=== PATIENT | female | born 2000 | race Caucasian/White ===

== ENCOUNTER 2019-03-01 23:55 | Emergency (ER) | payer OTHER, SELFPAY ==
--- OUTSIDE RECORDS SUMMARY | 2019-03-01 23:58 | XMS REPORT | Summary of Care ---
:2000 Author Name Jenifer Lopez R.N. Address [place] [facility] Unavailable , Care Team Providers Name Role Phone LISSA DURHAM M.D. Unavailable Unavailable Jenifer oLpez R.N. Unavailable Unavailable BRENNAN WOLFF, MIGUEL BLACK Unavailable Unavailable Unavailable Unavailable Unavailable Functional Status Name Dates Details Functional status health issues are not documented Status: Name Dates Details Cognitive status health issues are not documented Status: Problems Name Dates Details MDD (major depressive disorder) (296.20, F32.9) Status: Active Marijuana abuse (305.20, F12.10) Status: Active Alcohol abuse (305.00, F10.10) Status: Active Insomnia (780.52, G47.00) Status: Active Anxiety disorder (300.00, F41.9) Status: Active Bipolar disorder without psychotic features (296.80, F31.9) Status: Active Nicotine abuse (305.1, Z72.0) Status: Active Medications Name Dates Details TraZODone HCl - 100 MG Oral Tablet Take one tablet at bedtime. Quantity: 30 Refills: 1 HERMINIO Gomez, LISSA Start : 06-Jan-2017 Active DULoxetine HCl - 60 MG Oral Capsule Delayed Release Particles TAKE 1 CAPSULE DAILY Quantity: 30 Refills: 2 HERMINIO Gomez, LISSA Start : 20-Mar-2017 Active ARIPiprazole 5 MG Oral Tablet TAKE 1 TABLET BEDTIME Quantity: 30 Refills: 2 HERMINIO Gomez, LISSA Start : 06-Aug-2017 Active Allergies and Adverse Reactions Name Dates Details No Known Drug Allergies (Allergy) Status: Active Procedures Procedure Dates Details Procedures not documented Immunization Name Dates Details Immunizations not documented Social History Name Dates Details Unknown if ever smoked Vital Signs Date Test Result Details No Known Vitals to report Results Date Description Value Details Results not documented Plan of Care Name Dates Details Planned Observations Planned Goals not documented Planned Encounters Appointment; LISAS DURHAM M.D. On: 03-Jun-2018 11:30 Interventions Provided Discussion/SummaryGuideline Used: Other: None used Clinic: [facility] calling again to request prescription refills for Abilify and Cymbalta. Chart review done, kimberley did not receive a call from the clinic staff or Dr. Durham. Would like to confirm that her call back # is [phone]. The number listed on file is her mother's phone #. Requesting call back. Additional Information: Add On Task sent to Callum Hicks Instructions Name Dates Details Instructions not documented Encounters Appointment; LISSA DURHAM M.D. On: 06-Jan-2017 13:00 Encounter Diagnosis: Problem not documented Appointment; LISSA DURAHM M.D. On: 12-Feb-2017 14:00 Encounter Diagnosis: Problem not documented Appointment; LISSA DURHAM M.D. On: 19-Mar-2017 12:00 Encounter Diagnosis: Problem not documented Appointment; LISSA DURHAM M.D. On: 26-Mar-2017 12:00 Encounter Diagnosis: Problem not documented Appointment; LISSA DURHAM M.D. On: 17-Apr-2017 11:30 Encounter Diagnosis: Problem not documented Appointment; LISSA DURHAM M.D. On: 30-Jul-2017 14:00 Encounter Diagnosis: Problem not documented Appointment; LISSA DURHAM M.D. On: 01-Oct-2017 15:00 Encounter Diagnosis: Problem not documented Appointment; LISSA DURHAM M.D. On: 04-Dec-2017 12:30 Encounter Diagnosis: Problem not documented Appointment; LISSA DURHAM M.D. On: 04-Mar-2018 12:00 Encounter Diagnosis: Problem not documented
[2019-03-02 00:45] LABS: Absolute Monocytes 0.7 K/uL (0.1-1.3); Absolute Neutrophil 6.1 K/uL (1.8-8.0); Basophils % 0.4 % (0-1.3); Eosinophils % 1.5 % (0-4.4); Hematocrit 43.2 % (36.0-45.0); Lymphocytes % 35.9 % (15.3-44.8); MPV 7.5 fL (7.6-11.3); Monocytes % 6.7 % (3.3-12.3); RBC Red Blood Cell Count 5.07 M/uL (3.86-4.86)
[2019-03-02 00:51] LABS: ALT/SGPT 20 U/L (12-78); AST/SGOT 19 U/L (15-37); Albumin 4.7 g/dL (3.4-5.0); Alkaline Phosphatase 63 U/L (45-117); BUN Blood Urea Nitrogen 9 mg/dL (7-18); Bicarbonate 24 mmol/L (21-32); Bilirubin Direct 0.2 mg/dL (0-0.2); Bilirubin Total 0.9 mg/dL (0.2-1.0); Glucose Level 100 mg/dL (74-106); Potassium 3.4 mmol/L (3.5-5.1); Sodium Level 139 mmol/L (136-145)
[2019-03-02 00:57] LABS: Protime INR 1.03
[2019-03-02 01:05] LABS: Barbiturates NEGATIVE (NEGATIVE); Benzodiazepines POSITIVE (NEGATIVE); Cocaine NEGATIVE (NEGATIVE); METHAMPHETAM NEGATIVE (NEGATIVE); Methadone NEGATIVE (NEGATIVE); Opiates NEGATIVE (NEGATIVE); Phencyclidine NEGATIVE (NEGATIVE); THC Cannibis NEGATIVE (NEGATIVE)
[2019-03-02] MEDS ORDERED: LORAZEPAM 1 MG TABLET ONE (01:22)
--- NOTE | 2019-03-02 07:07 | ER ---
Nurse's Notes [facility] Name: Dawna Hopkins Age: 18 yrs Sex: Female : 2000 Arrival Date: 03/01/2019 Time: 23:57 Bed 7 Private MD: Diagnosis: Anxiety disorder due to known physiological condition Presentation: 03/02 00:04 Presenting complaint: EMS states: Pt has been having multiple anxiety attacks, EMS ea reports pt was inconsolable, and reported she wanted to get help before she hurt herself or others. Transition of care: patient was not received from another setting of care. Onset of symptoms was March 02, 2019. Risk Assessment: Do you want to hurt yourself or someone else? Patient reports desire/thoughts of hurting themselves or someone else. Provider notified. Initial Sepsis Screen: Does the patient meet any 2 criteria? HR > 90 bpm. Does the patient have a suspected source of infection? No. Patient's initial sepsis screen is negative. Care prior to arrival: Medication(s) given: Pt took Lorazepam po before EMS arrival. 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 - Social history:: Smoking status: Patient uses tobacco products, smokes one pack cigarettes per day. - Ebola Screening: : No symptoms or risks identified at this time. Screenin:14 Abuse screen: Denies threats or abuse. Nutritional screening: No deficits noted. ea Tuberculosis screening: No symptoms or risk factors identified. Fall Risk None identified. Assessment: 00:04 General: Appears uncomfortable, Behavior is cooperative, anxious, crying. Pain: Denies ea pain. Neuro: Level of Consciousness is awake, alert, obeys commands, Oriented to person, place, time, situation. Neuro:. Cardiovascular: Patient's skin is warm and dry. Respiratory: Airway is patent Respiratory effort is even, unlabored, Respiratory pattern is regular, symmetrical. GI: No signs and/or symptoms were reported involving the gastrointestinal system. : No signs and/or symptoms were reported regarding the genitourinary system. Derm: Skin is pink, warm \T\ dry. Musculoskeletal: Circulation, motion, and sensation intact. 01:00 Reassessment: Patient and/or family updated on plan of care and expected duration. Pain ea level reassessed. Patient is alert, oriented x 3, equal unlabored respirations, skin warm/dry/pink. 02:44 Reassessment: Patient and/or family updated on plan of care and expected duration. Pain ea level reassessed. Patient is alert, oriented x 3, equal unlabored respirations, skin warm/dry/pink. 04:50 Reassessment: Patient and/or family updated on plan of care and expected duration. Pain ea level reassessed. Pt resting with eyes closed, respirations even and unlabored. Chest expansions even and symmetrical. 05:30 Reassessment: Patient and/or family updated on plan of care and expected duration. Pain ea level reassessed. Patient is alert, oriented x 3, equal unlabored respirations, skin warm/dry/pink. [place] at bedside. Vital Signs: 00:10 BP 140 / 97; Pulse 110; Resp 20; Temp 98; Pulse Ox 98% on R/A; Weight 55.79 kg; Height ea 5 ft. 1 in. (154.94 cm); Pain 0/10; 01:52 BP 129 / 84; Pulse 102; Resp 18; Pulse Ox 100% on R/A; mw2 06:53 BP 128 / 86; Pulse 96; Resp 18; Pulse Ox 100% on R/A; mw2 00:10 Body Mass Index 23.24 (55.79 kg, 154.94 cm) ea ED Course: 03/01 23:57 Patient arrived in ED. ds1 03/02 00:01 Sunny Nevarez MD is Attending Physician. tw4 00:04 Janelle Falcon RN is Primary Nurse. ea 00:04 Patient has correct armband on for positive identification. Placed in gown. Bed in low ea position. Adult w/ patient. 00:10 Triage completed. ea 00:14 Arm band placed on right wrist. Patient placed in an exam room, on a stretcher. ea 00:15 Safety Checks: Personal items have been removed. Pt personal items given to patient's ea parents The door is open or patient has been placed in a hallway bed/chair. A family member and/or friend is present and encouraged to stay. Mother at bedside Sitter present at this time. 00:15 Safety checks: Items removed: yes. Door open/sign placed on door: yes. Family/friend mw2 present: yes. Family/friends encouraged to stay with patient. Sitter present: Yes. Door closed. Noise minimized. Lights dimmed. Warm blanket given. Pillow given. cup of ice chips given. 00:23 Inserted saline lock: 22 gauge in left hand, using aseptic technique. Blood collected. mt 00:30 Safety checks: Items removed: yes. Door open/sign placed on door: yes. Family/friend mw2 present: yes. Family/friends encouraged to stay with patient. Sitter present: Yes. 00:45 Safety checks: Items removed: yes. Door open/sign placed on door: yes. Family/friend mw2 present: yes. Sitter present: Yes. 01:00 Safety checks: Items removed: yes. Door open/sign placed on door: yes. Family/friend mw2 present: yes. Sitter present: Yes. 01:15 Safety checks: Items removed: yes. Door open/sign placed on door: yes. Family/friend mw2 present: yes. Sitter present: Yes. 01:30 Safety checks: Items removed: yes. Door open/sign placed on door: yes. Family/friend mw2 present: yes. Sitter present: Yes. 01:45 Safety checks: Items removed: yes. Door open/sign placed on door: yes. Family/friend mw2 present: yes. Sitter present: Yes. 02:00 Safety checks: Items removed: yes. Door open/sign placed on door: yes. Family/friend mw2 present: yes. Sitter present: Yes. 02:15 Safety checks: Items removed: yes. Door open/sign placed on door: yes. Family/friend mw2 present: yes. Sitter present: Yes. 02:30 Safety checks: Items removed: yes. Door open/sign placed on door: yes. Family/friend mw2 present: yes. Sitter present: Yes. 02:45 Safety checks: Items removed: yes. Door open/sign placed on door: yes. Family/friend mw2 present: yes. Sitter present: Yes. 03:00 Safety checks: Items removed: yes. Door open/sign placed on door: yes. Family/friend mw2 present: yes. Sitter present: Yes. 03:15 Safety checks: Items removed: yes. Door open/sign placed on door: yes. Family/friend mw2 present: yes. Sitter present: Yes. 03:30 Safety checks: Items removed: yes. Door open/sign placed on door: yes. Family/friend mw2 present: yes. Sitter present: Yes. 03:45 Safety checks: Items removed: yes. Door open/sign placed on door: yes. Family/friend mw2 present: yes. Sitter present: Yes. 04:00 Safety checks: Items removed: yes. Door open/sign placed on door: yes. Family/friend mw2 present: yes. Sitter present: Yes. 04:15 Safety checks: Items removed: yes. Door open/sign placed on door: yes. Family/friend mw2 present: yes. Sitter present: Yes. 04:30 Safety checks: Items removed: yes. Door open/sign placed on door: yes. Family/friend mw2 present: yes. Sitter present: Yes. 04:45 Safety checks: Items removed: yes. Door open/sign placed on door: yes. Family/friend mw2 present: no. Sitter present: Yes. 05:00 Safety checks: Items removed: yes. Door open/sign placed on door: yes. Family/friend mw2 present: no. Sitter present: Yes. 05:15 Safety checks: Items removed: yes. Door open/sign placed on door: yes. Family/friend mw2 present: no. Sitter present: Yes. 05:30 Safety checks: Items removed: yes. Door open/sign placed on door: yes. Family/friend mw2 present: no. Sitter present: Yes. 05:45 Safety checks: Items removed: yes. Door open/sign placed on door: yes. Family/friend mw2 present: no. Sitter present: Yes. 06:00 Safety checks: Items removed: yes. Door open/sign placed on door: yes. Family/friend mw2 present: yes. Sitter present: Yes. 06:15 Safety checks: Items removed: yes. Door open/sign placed on door: yes. Family/friend mw2 present: yes. Sitter present: Yes. 06:30 Safety checks: Items removed: yes. Door open/sign placed on door: yes. Family/friend mw2 present: yes. Sitter present: Yes. 06:45 Safety checks: Items removed: yes. Door open/sign placed on door: yes. Family/friend mw2 present: no. Sitter present: Yes. 07:00 Safety checks: Items removed: yes. Door open/sign placed on door: yes. Family/friend ms present: no. Sitter present: Yes. 07:40 No provider procedures requiring assistance completed. IV discontinued, intact, ss bleeding controlled, No redness/swelling at site. Pressure dressing applied. Administered Medications: 01:23 Drug: Ativan 1 mg Route: PO; ea 02:00 Follow up: Response: No adverse reaction alvarez Outcome: 07:06 Discharge ordered by tw4 08:05 Patient left the ED. ph Signatures: Mirella Godfrey dsShoshana Young ms, Shelby, RN RN ss Hall, Patricia, RN RN Ailyn Mccarthy mt, Elena, RN RN ea Wadley, Terrence, MD MD tw4 Gregoria Mata mw2 Corrections: (The following items were deleted from the chart) 05:16 04:45 Safety checks: Items removed: yes. Door open/sign placed on door: yes. mw2 Family/friend present: yes. Sitter present: Yes. mw2 05:16 05:00 Safety checks: Items removed: yes. Door open/sign placed on door: yes. mw2 Family/friend present: yes. Sitter present: Yes. mw2
--- NOTE | 2019-03-02 07:07 | EDPHYS ---
Physician Documentation [facility] Name: Dawna Hopkins Age: 18 yrs Sex: Female : 2000 Arrival Date: 03/01/2019 Time: 23:57 Bed 7 Private MD: ED Physician Sunny Nevarez HPI: 03/02 03:28 This 18 yrs old Female presents to ER via EMS with complaints of Anxiety. tw4 03:28 The patient presents to the emergency department with anxiety, over unknown tw4 circumstances, suicide ideation. Onset: The symptoms/episode began/occurred today. Past psychiatric history: Prior diagnosis: bipolar disorder. Associated signs and symptoms: The patient has no apparent associated signs or symptoms. Severity of symptoms: At their worst the symptoms were mild in the emergency department the symptoms are unchanged. The patient has not experienced similar symptoms in the past. 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 - Social history:: Smoking status: Patient uses tobacco products, smokes one pack cigarettes per day. - Ebola Screening: : No symptoms or risks identified at this time. ROS: 03:28 Constitutional: Negative for fever, chills, and weight loss, Eyes: Negative for injury, tw4 pain, redness, and discharge, Cardiovascular: Negative for chest pain, palpitations, and edema, Respiratory: Negative for shortness of breath, cough, wheezing, and pleuritic chest pain, Abdomen/GI: Negative for abdominal pain, nausea, vomiting, diarrhea, and constipation, Back: Negative for injury and pain, MS/Extremity: Negative for injury and deformity, Skin: Negative for injury, rash, and discoloration, Neuro: Negative for headache, weakness, numbness, tingling, and seizure. 03:28 Psych: Positive for anxiety, depression, suicide gesture, suicidal ideation, Negative for drug dependence, alcohol dependence, auditory hallucinations, visual hallucinations, homicidal ideation, insomnia. Exam: 03:28 Constitutional: This is a well developed, well nourished patient who is awake, alert, tw4 and in no acute distress. Head/Face: Normocephalic, atraumatic. Chest/axilla: Normal chest wall appearance and motion. Nontender with no deformity. No lesions are appreciated. Cardiovascular: Regular rate and rhythm with a normal S1 and S2. No gallops, murmurs, or rubs. Normal PMI, no JVD. No pulse deficits. Respiratory: Lungs have equal breath sounds bilaterally, clear to auscultation and percussion. No rales, rhonchi or wheezes noted. No increased work of breathing, no retractions or nasal flaring. Abdomen/GI: Soft, non-tender, with normal bowel sounds. No distension or tympany. No guarding or rebound. No evidence of tenderness throughout. Back: No spinal tenderness. No costovertebral tenderness. Full range of motion. Skin: Warm, dry with normal turgor. Normal color with no rashes, no lesions, and no evidence of cellulitis. MS/ Extremity: Pulses equal, no cyanosis. Neurovascular intact. Full, normal range of motion. Neuro: Awake and alert, GCS 15, oriented to person, place, time, and situation. Cranial nerves II-XII grossly intact. Motor strength 5/5 in all extremities. Sensory grossly intact. Cerebellar exam normal. Normal gait. 03:28 Psych: Behavior/mood is anxious, suicidal, Affect is animated, Oriented to person, place, time. Vital Signs: 00:10 BP 140 / 97; Pulse 110; Resp 20; Temp 98; Pulse Ox 98% on R/A; Weight 55.79 kg; Height ea 5 ft. 1 in. (154.94 cm); Pain 0/10; 01:52 BP 129 / 84; Pulse 102; Resp 18; Pulse Ox 100% on R/A; mw2 06:53 BP 128 / 86; Pulse 96; Resp 18; Pulse Ox 100% on R/A; mw2 00:10 Body Mass Index 23.24 (55.79 kg, 154.94 cm) ea MDM: 00:01 Patient medically screened. 03/02 00:02 Order name: Acetaminophen 03/02 00:02 Order name: Basic Metabolic Panel 03/02 00:02 Order name: CBC with Diff 03/02 00:02 Order name: ETOH Level 03/02 00:02 Order name: Hepatic Function 03/02 00:02 Order name: PT-INR 03/02 00:02 Order name: Ptt, Activated 03/02 00:02 Order name: Salicylate 03/02 00:02 Order name: Urine Drug Screen 03/02 00:02 Order name: EKG; Complete Time: 00:09 03/02 00:02 Order name: EKG - Nurse/Tech; Complete Time: 00:33 03/02 00:02 Order name: IV Saline Lock; Complete Time: 00:23 03/02 00:02 Order name: Labs collected and sent; Complete Time: 00:24 03/02 00:02 Order name: Urine Dipstick-Ancillary (obtain specimen); Complete Time: :33 Administered Medications: 01:23 Drug: Ativan 1 mg Route: PO; ea 02:00 Follow up: Response: No adverse reaction ea Disposition: 03/02/19 07:06 Discharged to Home. Impression: Anxiety disorder due to known physiological condition. - Condition is Stable. - Discharge Instructions: Panic Attacks. - Medication Reconciliation Form, Thank You Letter, Antibiotic Education, Prescription Opioid Use, Family Work Release form. - Follow up: Private Physician; When: Upon discharge from the Emergency Department; Reason: If symptoms return, Recheck today's complaints, Continuance of care. - Problem is new. - Symptoms have improved. Signatures: Dispatcher [employer] Yasmine Priest RN RN ph Antunez, Elena RN Sunny Cervantes ea, MD MD tw4 Corrections: (The following items were deleted from the chart) 08:05 07:06 03/02/2019 07:06 Discharged to Home. Impression: Anxiety disorder due to known ph physiological condition. Condition is Stable. Forms are Family Work Release, Medication Reconciliation Form, Thank You Letter, Antibiotic Education, Prescription Opioid Use. Follow up: Private Physician; When: Upon discharge from the Emergency Department; Reason: If symptoms return, Recheck today's complaints, Continuance of care. Problem is new. Symptoms have improved. tw4
--- NOTE | 2019-03-02 07:54 | EKG ---
Test Date: 2019-03-02 Test Time: 00:27:39 Manager Mobile: DAVID MEASUREMENT RESULTS: Intervals: Rate: 95 WA: 120 QRSD: 86 QT: 350 QTc: 439 [place]: P: 61 WA: 120 QRS: 13 T: 35 INTERPRETIVE STATEMENTS: Normal sinus rhythm Normal ECG No previous ECG available for comparison Electronically Signed On 03-02-19 07:53:26 CDT by Dar Mcdermott
== END 2019-03-02 08:05 | disposition home or self-care (01) ==
LOC: ER 23:55
DX: F41.8 Other specified anxiety disorders (principal); F31.9 Bipolar disorder, unspecified; F17.210 Nicotine dependence, cigarettes, uncomplicated
CPT/HCPCS: 36415; 80048; 80076; 80307; 80320; 80329; 85025; 85610; 85730; 93005; 99284

== ENCOUNTER 2019-03-02 12:22 | Emergency (ER) | payer SELFPAY ==
--- NOTE | 2019-03-02 13:30 | EDPHYS ---
Physician Documentation [facility] Name: Dawna Hopkins Age: 18 yrs Sex: Female : 2000 Arrival Date: 03/02/2019 Time: 12:25 Bed 17 Private MD: ED Physician Branden Yung HPI: 03/02 13:15 This 18 yrs old Female presents to ER via Wheelchair with complaints of ps1 anxiety and psychogenic seizures. 13:15 patient was seen and evaluated previously for same complaint. Patient has seizure like ps1 activity that is able to be stopped with redirection by RN. Patient states that she has a previous psychiatric history of anxiety and diagnosed with bipolar disorder and has been really stressed over the last couple of days. She attests to significant alcohol consumption, tobacco abuse, and insomnia. . Historical: - Allergies: 12:44 No Known Allergies; aj1 - Home Meds: 12:44 Lorazepam Oral [Active]; Xanax Oral [Active]; Cymbalta oral oral [Active]; aj1 - PMHx: 12:44 Anxiety; Bipolar disorder; Asthma; aj1 - Immunization history:: Flu vaccine is not up to date. - Social history:: Smoking status: Patient uses tobacco products, smokes two packs cigarettes per day. - Ebola Screening: : Patient denies travel to an Ebola-affected area in the 21 days before illness onset. ROS: 13:15 Constitutional: Negative for fever, chills, and weight loss, Eyes: Negative for injury, ps1 pain, redness, and discharge, ENT: Negative for injury, pain, and discharge, Cardiovascular: Negative for chest pain, palpitations, and edema, Respiratory: Negative for shortness of breath, cough, wheezing, and pleuritic chest pain, Abdomen/GI: Negative for abdominal pain, nausea, vomiting, diarrhea, and constipation, Skin: Negative for injury, rash, and discoloration. 13:15 Psych: Positive for anxiety, alcohol dependence, suicidal ideation without plan. psychogenic non-epileptic seizure.. Exam: 13:15 Constitutional: This is a well developed, well nourished patient who is awake, alert, ps1 and in no acute distress. Head/Face: Normocephalic, atraumatic. Eyes: Pupils equal round and reactive to light, extra-ocular motions intact. Lids and lashes normal. Conjunctiva and sclera are non-icteric and not injected. ENT: Nares patent. No nasal discharge, no septal abnormalities noted. Tympanic membranes are normal and external auditory canals are clear. Oropharynx with no redness, swelling, or masses, exudates, or evidence of obstruction, uvula midline. Mucous membranes moist. Chest/axilla: Normal chest wall appearance and motion. Nontender with no deformity. No lesions are appreciated. Cardiovascular: Regular rate and rhythm. No gallops, murmurs, or rubs. Normal PMI, no JVD. No pulse deficits. Respiratory: Lungs have equal breath sounds bilaterally, clear to auscultation and percussion. No rales, rhonchi or wheezes noted. No increased work of breathing, no retractions or nasal flaring. Neuro: Awake and alert, GCS 15, oriented to person, place, time, and situation. Cranial nerves II-XII grossly intact. Sensory grossly intact. 13:15 Psych: Behavior/mood is anxious, uncooperative, angry, Affect is animated, Patient has no thoughts/intents to harm self or others. patient demonstrating psychogenic seizure in the ED. Completely redirectable. Not epileptic. Aggressive with staff and myself. . Vital Signs: 12:44 BP 149 / 99; Pulse 111; Resp 18; Temp 98.2; Pulse Ox 98% on R/A; Weight 57.61 kg (R); aj1 Height 5 ft. 1 in. (154.94 cm) (R); 13:28 BP 140 / 98; Pulse 109; Resp 18; Pulse Ox 100% ; bp 12:44 Body Mass Index 24.00 (57.61 kg, 154.94 cm) aj1 MDM: 12:54 Patient medically screened. ps1 13:15 Data reviewed: vital signs, nurses notes. ED course: patient became aggressive with ps1 staff and myself and alluding to violence. Family states that they will leave AMA. I agreed that she is not having seizure activity. Does need psychiatric evaluation but cannot threaten or try to manipulate staff. They left on their own accord after AMA. . Administered Medications: No medications were administered Disposition: 03/02/19 13:29 Patient has left against medical advice. - Patients states they are going to Home. - Condition is Stable. Signatures: Jessica Vaca RN RN aj1 Nestor Boucher RN RN bp Branden Yung, MD ps1
--- NOTE | 2019-03-02 13:30 | ER ---
Nurse's Notes [facility] Name: Dawna Hopkins Age: 18 yrs Sex: Female : 2000 Arrival Date: 03/02/2019 Time: 12:25 Bed 17 Private MD: Diagnosis: Presentation: 03/02 12:35 Presenting complaint: Patent's friend ran inside ER, stating patient was unresponsive aj1 in the car, patient was sitting in the car with eyes closed, respirations even and labored. Upon being sternal rubbed patient opened her eyes and screamed "ow!" Patient was placed into a wheelchair, where she began having seizure like activity. Patient remained upright in chair during this episode and when patient was sternal rubbed the seizure activity stopped. Patient was wheel to ER bed 17, and transferred herself from wheelchair to bed. Patient was alert and oriented x4 upon arrival to ER bed. States "I think I'm having a manic episode, theres a lot that goes with that. I've been to the ER 3 times in the past 72 hours. Obviously I'm having seizures. I just need you to fix it". Transition of care: patient was not received from another setting of care. Onset of symptoms was March 02, 2019. Risk Assessment: Do you want to hurt yourself or someone else? Patient reports no desire to harm self or others. Initial Sepsis Screen: Does the patient meet any 2 criteria? No. Patient's initial sepsis screen is negative. Does the patient have a suspected source of infection? No. Patient's initial sepsis screen is negative. Care prior to arrival: None. 12:35 Method Of Arrival: Wheelchair aj1 12:35 Acuity: AZIZA 3 aj1 Triage Assessment: 12:44 General: Appears in no apparent distress. comfortable, Behavior is calm, cooperative, aj1 appropriate for age. Historical: - Allergies: 12:44 No Known Allergies; aj1 - Home Meds: 12:44 Lorazepam Oral [Active]; Xanax Oral [Active]; Cymbalta oral oral [Active]; aj1 - PMHx: 12:44 Anxiety; Bipolar disorder; Asthma; aj1 - Immunization history:: Flu vaccine is not up to date. - Social history:: Smoking status: Patient uses tobacco products, smokes two packs cigarettes per day. - Ebola Screening: : Patient denies travel to an Ebola-affected area in the 21 days before illness onset. Screenin:25 Abuse screen: Denies threats or abuse. Denies injuries from another. Nutritional bp screening: No deficits noted. Tuberculosis screening: No symptoms or risk factors identified. Fall Risk None identified. Assessment: 13:00 General: PT ENGAGING IN RHYTHMIC FLOPPING MOTIONS WHICH RESOLVED WITH NOXIOUS STIMULI. bp PT THEN SCREAMING AT STAFF AND FAMILY AND FLAILING HANDS AND FEET IN BED. MD ALERTED OF PT AGITATED BEHAVIOR AND ABUSIVE LANGUAGE WITH STAFF AND FAMILY. 13:21 General: PT AND FAMILY ELECTING NOT TO WAIT FOR PSYCH W/U AFTER CONSULTATION WITH MD, bp PT DENIES SI. Vital Signs: 12:44 BP 149 / 99; Pulse 111; Resp 18; Temp 98.2; Pulse Ox 98% on R/A; Weight 57.61 kg (R); aj1 Height 5 ft. 1 in. (154.94 cm) (R); 13:28 BP 140 / 98; Pulse 109; Resp 18; Pulse Ox 100% ; bp 12:44 Body Mass Index 24.00 (57.61 kg, 154.94 cm) aj1 ED Course: 12:25 Patient arrived in ED. bp 12:25 Branden Yung MD is Attending Physician. ps1 12:27 Nestor Boucher, RN is Primary Nurse. bp 12:39 Triage completed. aj1 12:44 Arm band placed on Patient Patient triaged in ER bed 17. aj1 13:25 Patient has correct armband on for positive identification. Adult w/ patient. bp 13:26 No provider procedures requiring assistance completed. Patient did not have IV access bp during this emergency room visit. Administered Medications: No medications were administered Outcome: 13:27 AMA Other LEFT WITH FAMILY, LAST SEEN IN STABLE CONDITION bp 13:27 Condition: stable 13:29 Patient left the ED. bp Signatures: Jessica Vaca RN RN aj1 Senia Don RN RN ss Peltier, Brian, OFELIA RN bp Branden Yung MD MD ps1 Corrections: (The following items were deleted from the chart) 13:07 13:05 No provider procedures requiring assistance completed. ss ss 13: 13:05 IV discontinued, intact, bleeding controlled, No redness/swelling at site. ss Pressure dressing applied, ss 13:07 13:05 Discharged to home ambulatory, [facility] 13:05 Condition: good [facility] 13:05 Discharge instructions given to patient, family, Instructed on discharge instructions, follow up and referral plans. medication usage, Demonstrated understanding of instructions, follow-up care, medications, Prescriptions given X 1, ss
== END 2019-03-02 13:29 | disposition left against medical advice (07) ==
LOC: ER 12:22
DX: F41.9 Anxiety disorder, unspecified (principal); F31.9 Bipolar disorder, unspecified; J45.909 Unspecified asthma, uncomplicated; F17.210 Nicotine dependence, cigarettes, uncomplicated; Z53.29 Procedure and treatment not carried out because of patient's decision for other reasons
CPT/HCPCS: 99281

== ENCOUNTER 2024-11-28 13:27 | Emergency (ER) | payer BC, SELFPAY ==
--- OUTSIDE RECORDS SUMMARY | 2024-11-28 13:30 | XMS REPORT | Continuity of Care Document ---
Author Name Unknown Address [address] [facility] [address] [place] [address] [facility] thconnect Address [address] [facility] [address] [place] [address] Care Team Providers Care Peanut Cleaner Name Role Phone Roxann Wagner Primary Care Physician PASCALE LU Attending Clinician Unavailable Pascale Arriola Attending Clinician Doctor Unassigned, [place] Attending Clinician U JANET Story Attending Clinician Janet Lemons Attending Clinician + Erum Campuzano RN Attending Clinician Vee casas Doctor Unassigned, [place] Attending Clinician U navailzan THOMAS_GCBZW_Kadiyala_S Attending Clinician Rainera LISSA Garcia M.D. Attending Clinician Jun e WILLIAM_[email or web address]_Katimoteo_S Admitting Clinician Vee casas Payers Payer Name Policy Type Policy Number Effective Date Expirati on Date Source [facility] [id number] 2024 00:00:00 Problems Condition Name Condition Details Condition Category Status Onset Date Resolution Date Last Treatment Date Treating Clinician Comments Source Other general counseling and advice for contracept yenni management Other general counseling and advice for contracept yenni management Disease Active 07-06 00:00: 00 [facility] MDD (major depressive disorder) MDD (major depressive disorder) Problem HL7.CCDAR2 Active [facility] Marijuana abuse Marijuana abuse Problem HL7.CCDAR2 Active [facility] Alcohol abuse Alcohol abuse Problem HL7.CCDAR2 Active [facility] Insomnia Insomnia Problem HL7.CCDAR2 Active [facility] Anxiety disorder Anxiety disorder Problem HL7.CCDAR2 Active [facility] Bipolar disorder without psychotic features Bipolar disorder without psychotic features Problem HL7.CCDAR2 Active [facility] Nicotine abuse Nicotine abuse Problem HL7.CCDAR2 Active [facility] IUD (intrauter ine device) in place IUD (intrauter ine device) in place Disease Resolve d 07-06 00:00: 00 2024-11-01 00:00:00 2024-11-01 15:37:27 [facility] Allergies, Adverse Reactions, Alerts Allergy Name Allergy Type Status Severity Reaction(s) Onset Date Inactive Date Treating Clinician Comments Source Gabapent in Propensi ty to adverse reaction s Active Other - See comments 2022-10 00:00: 00 "Makes me suicidal" . [facility] GABAPENT IN DRUG INGREDI Active Other-Cmnt 2022-10 00:00: 00 [facility] Social History Social Habit Start Date Stop Date Quantity Comments Source History of tobacco use Cigarette Smoker [facility] Alcoholic beverage intake 2024-11-01 00:00:00 2024-11-01 00:00:00 2 /d [facility] Tobacco use and exposure 2024-04-09 00:00:00 2024-04-09 00:00:00 Smokeless tobacco non-user [facility] History of Social function 2024-04-09 00:00:00 2024-04-09 00:00:00 [facility] Tobacco Comment 2024-04-09 00:00:00 2024-04-09 00:00:00 7 cigarettes per day since age 11 [facility] Sex assigned at 2000 00:00:00 2000 00:00:00 [facility] Smoking Status Start Date Stop Date Source Smokes tobacco daily 2024-04-09 00:00:00 [facility] Medications Ordered Medication Name Filled Medication Name Start Date Stop Date Current Medication? Ordering Clinician Indication Dosage Frequency Signature (SIG) Comments Components Source ketoconazol e 2 % topical cream 11-08 00:00: 00 Yes % Marcelo Moreno diazePAM 10 mg tablet 11-01 15:37: 02 Yes 5mg Take 0.5 tablets by mouth in the morning and 0.5 tablets in the evening. [facility] trazodone 50 mg tablet 11-01 00:00: 00 Yes mg Marcelo Moreno lamotrigine 150 mg tablet 2023-10 00:00: 00 Yes mg Marcelo Moreno tretinoin 0.025 % topical cream 2023-10 00:00: 00 Yes % Marcelo Moreno metroNIDAZO LE 500 mg tablet 2023-10 00:00: 00 11-01 00:00 :00 No [id number] 500mg Take 1 tablet by mouth every 12 (twelve) hours. [facility] fluconazole 150 mg tablet 2023-10 00:00: 00 09-09 05:59 :00 Yes [id number] 150mg Take 1 tablet by mouth once now for 1 dose. [facility] metroNIDAZO LE 500 mg tablet 2023-10 00:00: 00 09-08 00:00 :00 No [id number] 500mg Take 1 tablet by mouth every 12 (twelve) hours. [facility] etonogestre l-ethinyl estradiol (NUVARING) 0.12-0.015 mg/24 hr vaginal insert 2023-10 0-14 00:00: 00 11-01 00:00 :00 No [id number] 1{each} Insert 1 Each into vagina once every month. Insert vaginally and leave in place for 3 consecutiv e weeks, then remove for 1 week. [facility] venlafaxine 37.5 mg tablet 07-16 08:58: 40 Yes 37.5mg Take 1 tablet by mouth in the morning. [facility] zolpidem 10 mg tablet 07-16 08:58: 40 Yes 10mg Take 1 tablet by mouth at bedtime as needed for Insomnia. [facility] lamoTRIgine 100 mg tablet 07-16 08:58: 40 Yes 100mg Take 1 tablet by mouth in the morning. [facility] traZODone 50 mg tablet 07-16 08:58: 40 Yes 50mg Take 1 tablet by mouth at bedtime. [facility] lumateperon e (CAPLYTA) 21 mg Cap 07-16 08:58: 40 Yes 1{tbl} Take 1 tablet by mouth in the morning and 1 tablet in the evening. [facility] clonazePAM 0.5 mg tablet 07-16 08:58: 40 11-01 00:00 :00 No .5mg Take 1 tablet by mouth 3 (three) times daily as needed for Other. [facility] metroNIDAZO LE 0.75 % (37.5mg/5 gram) vaginal gel 07-16 00:00: 00 11-01 00:00 :00 No [id number] 1{appli cator} Insert 1 Applicator into vagina at bedtime. [facility] ibuprofen 800 mg tablet 07-06 00:00: 00 07-12 04:59 :00 No [id number] 800mg Take 1 tablet by mouth in the morning and 1 tablet at noon and 1 tablet in the evening. Take with meals. Do all this for 5 days. [facility] hydroxyzine HCl 25 mg tablet 06-01 00:00: 00 Yes 1mg Marcelo Moreno Seroquel 25 mg tablet 06-01 00:00: 00 Yes 1mg Marcelo Moreno venlafaxine ER 75 mg capsule,ext ended release 24 hr 06-01 00:00: 00 Yes 1mg Marcelo Moreno Seroquel 25 mg tablet 16 00:00: 00 Yes 1mg Marcelo Moreno venlafaxine ER 75 mg capsule,ext ended release 24 hr -16 00:00: 00 Yes 1mg Marcelo Moreno metroNIDAZO LE 500 mg tablet 04-13 00:00: 00 07-16 00:00 :00 No [id number] 500mg Take 1 tablet by mouth every 12 (twelve) hours. [facility] venlafaxine 75 mg tablet 04-09 07:17: 44 Yes 75mg Take 1 tablet by mouth. [facility] QUEtiapine 100 mg tablet 04-09 07:17: 44 08-02 00:00 :00 No 100mg Take 1 tablet by mouth. [facility] hydroxyzine HCl 25 mg tablet 03-30 00:00: 00 Yes 1mg Marcelo Moreno Seroquel 25 mg tablet 03-30 00:00: 00 Yes 1mg Marcelo Moreno venlafaxine ER 75 mg capsule,ext ended release 24 hr 03-30 00:00: 00 Yes 1mg Marcelo Moreno Seroquel 25 mg tablet 05 00:00: 00 Yes 1mg Marcelo Moreno hydrOXYzine 25 mg tablet 03-17 00:00: 00 08-02 00:00 :00 No 25mg Take 1 tablet by mouth 2 (two) times daily as needed for Anxiety. [facility] venlafaxine ER 75 mg capsule,ext ended release 24 hr 03-16 00:00: 00 Yes mg Marcelo Moreno buspirone 5 mg tablet 0 03-16 00:00: 00 Yes 1mg Marcelo Moreno hydroxyzine HCl 25 mg tablet 03-16 00:00: 00 Yes 1mg Marcelo Moreno Seroquel 25 mg tablet 03-16 00:00: 00 Yes 1mg Marcelo Moreno spironolact one 50 mg tablet -08 00:00: 00 Yes TAKE 1 TABLET BY MOUTH TWICE A DAY WITH FOOD AND WATER [facility] venlafaxine ER 75 mg capsule,ext ended release 24 hr 02-16 00:00: 00 Yes mg Marcelo Moreno buspirone 5 mg tablet 02-16 00:00: 00 Yes 1mg Marcelo Moreno hydroxyzine HCl 50 mg tablet 02-16 00:00: 00 Yes 1mg Marcelo Moreno propranolol 20 mg tablet 01-20 00:00: 00 Yes mg Marcelo Moreno venlafaxine ER 75 mg capsule,ext ended release 24 hr 01-20 00:00: 00 Yes mg Marcelo Moreno hydroxyzine HCl 25 mg tablet 01-20 00:00: 00 Yes 12mg Marcelo Moreno clonazepam 0.5 mg tablet 12-27 00:00: 00 Yes mg Marcelo Moreno TAKE ONE (1) TABLET(S) BY MOUTH TWICE A DAY. 12-26 00:00: 00 Yes Marcelo Moreno TAKE ONE (1) TABLET(S) BY MOUTH TWICE A DAY. 12-12 00:00: 00 Yes Marcelo Moreno propranolol 20 mg tablet 11-20 00:00: 00 Yes mg Marcelo Moreno TAKE ONE (1) TABLET(S) BY MOUTH ONCE A DAY NEEDED. 11-18 00:00: 00 Yes Marcelo Moreno TAKE ONE (1) TABLET(S) BY MOUTH TWICE A DAY. 11-18 00:00: 00 Yes Marcelo Moreno venlafaxine ER 75 mg capsule,ext ended release 24 hr 11-10 00:00: 00 Yes mg Marcelo Moreno TAKE 1 CAPSULE BY MOUTH EVERY DAY DIRECTED 2022-10 00:00: 00 Yes Marcelo Moreno spironolact one 50 mg tablet 2022-10 00:00: 00 Yes mg Marcelo Moreno TAKE 1 TABLET BY MOUTH TWICE DAILY WITH FOOD AND WATER 2022-10 00:00: 00 Yes Marcelo Moreno TAKE 1 CAPSULE BY MOUTH EVERY DAY DIRECTED 2022-10 00:00: 00 Yes Marcelo Moreno TAKE 1 TABLET BY MOUTH TWICE DAILY FOR 14 DAYS 2022-10 00:00: 00 Yes Marcelo Moreno KETOROLAC 10MG TABLETS 2022-10 116 00:00: 00 Yes Marcelo Moreno ONDANSETRON ODT 4MG TABLETS 05-31 00:00: 00 Yes Marcelo Moreno TRAMADOL 50MG TABLETS 05-31 00:00: 00 Yes Marcelo Moreno FOR SUSPECTED OPIOID OVERDOSE, ADMINISTER CONTENTS OF A SINGLE SPRAY DEVICE INTRANASALL Y INTO ONE NOSTRIL, CLOSELY OBSERVE PATIENT AND SEEK EMERGENCY MEDICAL CARE. MAY REPEAT WITH ANOTHER SPRAY DEVICE IN ALTERNATE NOSTRIL(S) EVERY 2 TO 3 MINUTES IF MINIMAL OR NO RESPONSE. 805 00:00: 00 Yes 4 Marcelo Moreno ARIPiprazol e 5 MG Oral Tablet ARIPiprazol e 5 MG Oral Tablet 2016-10 0 00:00: 00 Yes LISSA DURHAM M.D. 1 TAKE 1 TABLET BEDTIME [facility] DULoxetine HCl - 60 MG Oral Capsule Delayed Release Particles DULoxetine HCl - 60 MG Oral Capsule Delayed Release Particles 03-20 00:00: 00 Yes LISSA DURHAM M.D. 1 QD TAKE 1 CAPSULE DAILY [facility] TraZODone HCl - 100 MG Oral Tablet TraZODone HCl - 100 MG Oral Tablet -20 00:00: 00 Yes LISSA DURHAM M.D. Take one tablet at bedtime. [facility] Immunizations Ordered Immunization Name Filled Immunization Name Date Status Comments Source HPV9 2015-12-28 00:00:00 Completed HPV 2014-08-26 00:00:00 Completed [facility] HPV 2013-11-19 00:00:00 Completed Vital Signs Vital Name Observation Time Observation Value Comments S ource Systolic blood pressure 2024-11-01 20:49:00 134 mm[Hg] [facility] Diastolic blood pressure 2024-11-01 20:49:00 87 mm[Hg] [facility] Heart rate 2024-11-01 20:49:00 100 /min [facility] Body temperature 2024-11-01 20:49:00 36.5 Khloe [facility] Respiratory rate 2024-11-01 20:49:00 17 /min [facility] Body height 2024-11-01 20:49:00 157.5 cm [facility] Body weight 2024-11-01 20:49:00 57.788 kg [facility] BMI 2024-11-01 20:49:00 23.30 kg/m2 [facility] Systolic blood pressure 2024-09-07 22:11:00 118 mm[Hg] [facility] Diastolic blood pressure 2024-09-07 22:11:00 77 mm[Hg] [facility] Heart rate 2024-09-07 22:11:00 80 /min [facility] Body temperature 2024-09-07 22:11:00 36.44 Khloe [facility] Respiratory rate 2024-09-07 22:11:00 17 /min [facility] Body height 2024-09-07 22:11:00 157.5 cm [facility] Body weight 2024-09-07 22:11:00 60.056 kg [facility] BMI 2024-09-07 22:11:00 24.22 kg/m2 [facility] Systolic blood pressure 2024-08-02 13:22:00 127 mm[Hg] [facility] Diastolic blood pressure 2024-08-02 13:22:00 85 mm[Hg] [facility] Heart rate 2024-08-02 13:22:00 119 /min [facility] Body temperature 2024-08-02 13:22:00 36.17 Khloe [facility] Respiratory rate 2024-08-02 13:22:00 18 /min [facility] Body height 2024-08-02 13:22:00 157.5 cm [facility] Body weight 2024-08-02 13:22:00 57.063 kg [facility] BMI 2024-08-02 13:22:00 23.01 kg/m2 [facility] Systolic blood pressure 2024-07-16 12:55:00 120 mm[Hg] [facility] Diastolic blood pressure 2024-07-16 12:55:00 78 mm[Hg] [facility] Heart rate 2024-07-16 12:55:00 92 /min [facility] Body temperature 2024-07-16 12:55:00 36.11 Khloe [facility] Respiratory rate 2024-07-16 12:55:00 16 /min [facility] Body height 2024-07-16 12:55:00 157.5 cm [facility] Body weight 2024-07-16 12:55:00 58.786 kg [facility] BMI 2024-07-16 12:55:00 23.70 kg/m2 [facility] Systolic blood pressure 2024-07-06 11:57:00 130 mm[Hg] [facility] Diastolic blood pressure 2024-07-06 11:57:00 87 mm[Hg] [facility] Heart rate 2024-07-06 11:57:00 102 /min [facility] Body temperature 2024-07-06 11:57:00 36.06 Khloe [facility] Respiratory rate 2024-07-06 11:57:00 17 /min [facility] Body height 2024-07-06 11:57:00 157.5 cm [facility] Body weight 2024-07-06 11:57:00 58.423 kg [facility] BMI 2024-07-06 11:57:00 23.56 kg/m2 [facility] BP Systolic 2024-11-08 10:56:00 136 mm[Hg] Marcelo Moreno BP Diastolic 2024-11-08 10:56:00 65 mm[Hg] Marcelo Moreno Weight Measured 2024-11-08 10:56:00 121.40 pounds Marcelo Moreno Height Measured 2024-11-08 10:56:00 61.18 inches Marcelo Deluca Josh Body Temperature 2024-11-08 10:56:00 97.50 degrees Marcelo Deluca Josh Heart Rate 2024-11-08 10:56:00 88.00 /min Marcelo Moreno Respiratory Rate 2024-11-08 10:56:00 16.00 /min Marcelo Moreno BP Systolic 2024-03-25 13:29:00 113 mm[Hg] Marcelo Yosi Moreno BP Diastolic 2024-03-25 13:29:00 80 mm[Hg] Marcelo Moreno Weight Measured 2024-03-25 13:29:00 131.20 pounds Marcelo Moreno Height Measured 2024-03-25 13:29:00 61.10 inches Marcelo Moreno Body Temperature 2024-03-25 13:29:00 98.30 degrees Marcelo Moreno Heart Rate 2024-03-25 13:29:00 66.00 /min Marcelo Moreno Respiratory Rate 2024-03-25 13:29:00 18.00 /min Marcelo Moreno Weight 2018-03-04 11:48:00 120 [lb_av] [facility] Body Mass Index Calculated 2018-03-04 11:48:00 22.8 kg/m2 [facility] Temperature 2018-03-04 11:48:00 97.9 [degF] Method: Oral [facility] Heart Rate 2018-03-04 11:48:00 83 /min Location: L Brachial Artery; [facility] BP Systolic 2018-03-04 11:48:00 108 mm[Hg] Location: LUE; Position: Sitting [facility] BP Diastolic 2018-03-04 11:48:00 63 mm[Hg] Location: LUE; Position: Sitting [facility] Height 2018-03-04 11:48:00 154.5 cm [facility] BP Systolic 2017-12-04 12:59:00 110 mm[Hg] Location: LUE; Position: Sitting [facility] BP Diastolic 2017-12-04 12:59:00 73 mm[Hg] Location: LUE; Position: Sitting [facility] Height 2017-12-04 12:59:00 154.5 cm [facility] Weight 2017-12-04 12:59:00 115 [lb_av] [facility] Body Mass Index Calculated 2017-12-04 12:59:00 21.85 kg/m2 [facility] Temperature 2017-12-04 12:59:00 98 [degF] Method: Oral [facility] Heart Rate 2017-12-04 12:59:00 93 /min Location: L Brachial Artery; [facility] BP Systolic 2017-10-01 15:55:00 124 mm[Hg] Location: LUE; Position: Sitting [facility] BP Diastolic 2017-10-01 15:55:00 78 mm[Hg] Location: LUE; Position: Sitting [facility] Height 2017-10-01 15:55:00 158 cm [facility] Weight 2017-10-01 15:55:00 114.5 [lb_av] [facility] Body Mass Index Calculated 2017-10-01 15:55:00 20.8 kg/m2 [facility] Temperature 2017-10-01 15:55:00 98.3 [degF] Method: Oral [facility] Heart Rate 2017-10-01 15:55:00 90 /min Location: L Brachial Artery; [facility] Procedures Procedure Date / Time Performed Performing Clinicia n Source HIV 1/2 AG-AB WITH REFLEX 2024-11-01 21:19:00 Pascale Lu [facility] GALV ONLY - VAGINAL PATHOGENS BY NUCLEIC ACID TESTING 2024-09-07 22:35:00 Pascale Lu [facility] GC & CHLAMYDIA AMPLIFIED ASSAY 2024-09-07 22:16:00 Pascale Lu [facility] HIV 1/2 AG-AB WITH REFLEX 2024-09-07 22:16:00 Pascale Lu [facility] SYPHILIS IGG/IGM 2024-09-07 22:16:[address] [facility]] PROLACTIN 2017-08-06 00:00:00 [facility] Encounters Start Date/Time End Date/Time Encounter Type Admission Type Attending Clinicians Care Facility Care Department Encounter ID Source 2024-11-08 13:58:35 2024-11-08 13:58:35 Outpatient SFA S[facility] [id number] Marcelo Moreno 2024-11-08 00:00:00 2024-11-08 00:00:00 Outpatient Visit SFA [id number] Marcelo Moreno 2024-11-01 14:45:00 2024-11-01 15:46:21 Outpatient R PASCALE LU [facility] [id number] [facility] 2024-11-01 14:45:00 2024-11-01 15:46:21 Office Visit Pascale Lu [facility] QUALITY ASSURANCE COORDINATOR [facility] & CHILD [facility] 1..840.114 350.1.13.10 4.2.7.2.686 [id number] [facility] 2024-09-08 00:00:00 2024-10-09 18:15:41 Patient Secure Msg Pascale Lu [facility] QUALITY ASSURANCE COORDINATOR [facility] & CHILD [facility] 1..840.114 350.1.13.10 4.2.7.2.686 [id number] [facility] 2024-08-09 00:00:00 2024-09-11 18:26:02 Patient Secure Msg Pascale Lu [facility] QUALITY ASSURANCE COORDINATOR [facility] & CHILD [facility] 1.2.840.114 350.1.13.10 4.2.7.2.686 [id number] [facility] 2024-09-08 00:00:00 2024-09-08 14:16:44 Case Management Pascale Lu [facility] QUALITY ASSURANCE COORDINATOR [facility] CHILD [facility] 1.2.840.114 350.1.13.10 4.2.7.2.686 [id number] [facility] 2024-09-07 15:45:00 2024-09-07 16:34:39 Outpatient R PASCALE UL [facility] [id number] [facility] 2024-09-07 15:45:00 2024-09-07 16:34:39 Office Visit Pascale Lu [facility] QUALITY ASSURANCE COORDINATOR [facility] CHILD [facility] 1.2.840.114 350.1.13.10 4.2.7.2.686 [id number] [facility] 2024-08-04 00:00:00 2024-09-04 18:19:14 Patient Secure g Pascale Lu [facility] QUALITY ASSURANCE COORDINATOR [facility] & CHILD [facility] 1.2.840.114 350.1.13.10 4.2.7.2.686 [id number] [facility] 2024-07-19 00:00:00 2024-08-21 18:23:26 Patient Secure g Pascale Lu [facility] QUALITY ASSURANCE COORDINATOR [facility] CHILD [facility] 1.2.840.114 350.1.13.10 4.2.7.2.686 [id number] [facility] 2024-07-01 00:00:00 2024-08-07 18:30:48 Patient Secure Msg Doctor Unassigned, [place] Doctor Unassigned, Pierpont [facility] 1.2.840.114 350.1.13.10 4.2.7.2.686 [id number] [facility] 2024-07-01 00:00:00 2024-08-07 18:30:06 Patient Secure Msg Doctor Unassigned, [place] Doctor Unassigned, [place] [facility] 1.2.840.114 350.1.13.10 4.2.7.2.686 [id number] [facility] 2024-08-03 00:00:00 2024-08-04 13:38:28 Patient Secure Msg Pascale Lu [facility] QUALITY ASSURANCE COORDINATOR [facility] CHILD [facility] 1.2.840.114 350.1.13.10 4.2.7.2.686 [id number] [facility] 2024-08-03 00:00:00 2024-08-03 16:39:14 Case Management Pascale Lu [facility] QUALITY ASSURANCE COORDINATOR [facility] CHILD [facility] 1.2.840.114 350.1.13.10 4.2.7.2.686 [id number] [facility] 2024-08-02 08:15:00 2024-08-02 09:07:50 Outpatient R PASCALE LU [facility] [id number] [facility] 2024-08-02 08:15:00 2024-08-02 09:07:50 Office Visit Pascale Lu [facility] QUALITY ASSURANCE COORDINATOR [facility] CHILD [facility] 1.2.840.114 350.1.13.10 4.2.7.2.686 [id number] [facility] 2024-07-16 08:00:00 2024-07-16 08:33:56 Outpatient R PASCALE LU [facility] [id number] [facility] 2024-07-16 08:00:00 2024-07-16 08:33:56 Office Visit AlyPascale [facility] QUALITY ASSURANCE COORDINATOR [facility] CHILD [facility] 1.2.840.114 350.1.13.10 4.2.7.2.686 [id number] [facility] 2024-07-06 06:45:00 2024-07-06 07:59:30 Outpatient R JANET YOUSSEF [facility] [id number] [facility] 2024-07-06 06:45:00 2024-07-06 07:59:30 Office Visit Janet Youssef [facility] QUALITY ASSURANCE COORDINATOR [facility] CHILD [facility] 1.2.840.114 350.1.13.10 4.2.7.2.686 [id number] [facility] 2024-07-05 00:00:00 2024-07-05 12:14:[address] [facility] QUALITY ASSURANCE COORDINATOR [facility] CH[facility] 1.2.840.114 350.1.13.10 4.2.7.2.686 [id number] [facility] 2024-07-01 00:00:00 2024-07-01 17:12:16 Nurse Triage Erum Campuzano Maegan D [facility] 1.2.840.114 350.1.13.10 4.2.7.2.686 [id number] [facility] 2024-06-14 11:09:39 2024-06-14 11:09:39 Outpatient SFA [facility] [id number] Marcelo Moreno 2024-06-01 12:42:11 2024-06-01 12:42:11 Outpatient SFA [facility] [id number] Marcelo Yosi Josh 2024-04-19 00:00:00 2024-05-22 18:22:50 Patient Secure Msg Doctor Unassigned, [place] [facility] 1.2.840.114 350.1.13.10 4.2.7.2.686 [id number] [facility] 2024-05-04 13:55:38 2024-05-04 13:55:38 Outpatient SFA SFA [id number] Marcelo Moreno 2024-04-13 00:00:00 2024-04-13 10:51:17 Telephone Pascale Lu [facility] QUALITY ASSURANCE COORDINATOR [facility] CHILD [facility] 1.2.840.114 350.1.13.10 4.2.7.2.686 [id number] [facility] 2024-04-12 00:00:00 2024-04-12 13:51:27 Telephone Pascale Lu [facility] QUALITY ASSURANCE COORDINATOR [facility] 1.2.840.114 350.1.13.10 4.2.7.2.686 [id number] [facility] 2024-04-12 00:00:00 2024-04-12 13:40:27 Patient Secure Msg Doctor Unassigned, [place] [facility] 1.2.840.114 350.1.13.10 4.2.7.2.686 [id number] [facility] 2024-04-09 07:00:00 2024-04-09 08:03:29 Outpatient R PASCALE LU [facility] [id number] [facility] 2024-03-30 12:00:58 2024-03-30 12:00:58 Outpatient SFA SFA [id number] Marcelo Deluca Josh 2024-03-25 13:20:56 2024-03-25 13:20:56 Outpatient SFA SFA [id number] Marcelo Deluca Josh 2024-03-16 16:23:28 2024-03-16 16:23:28 Outpatient SFA SFA [id number] Marcelo Deluca Josh 2024-02-17 14:17:21 2024-02-17 14:17:21 Outpatient SFA SFA [id number] Marcelo Deluca Josh 2024-02-04 15:10:08 2024-02-04 15:10:08 Outpatient [facility] [id number] Marcelo Moreno 2024-01-21 14:33:18 2024-01-21 14:33:18 Outpatient [facility] [id number] Marcelo Deluca Josh 2023-08-19 00:00:00 2023-08-19 00:00:00 Outpatient GC_GCBZW_Ka diyala_S [facility] [id number] [facility] 2018-03-04 12:00:00 2018-03-04 12:00:00 Appointmen t; LISSA DURHAM M.D. MEMON, SABA, M.D. [facility] [id number] [place] [facility] 2017-12-04 12:30:00 2017-12-04 12:30:00 Appointmen t; LISSA DURHAM M.D. MEMON, SABA, M.D. [facility] [id number] [place] [facility] 2017-10-01 15:00:00 2017-10-01 15:00:00 Appointmen t; LISSA DURHAM M.D. MEMON, SABA, M.D. [facility] Psychiatry [id number] [place] [facility] 2017-07-30 14:00:00 2017-07-30 14:00:00 Appointmen t; LISSA DURHAM M.D. MEMON, SABA, M.D. [facility] [id number] [place] [facility] 2017-04-17 11:30:00 2017-04-17 11:30:00 Appointmen t; LISSA DURHAM M.D. MEMON, SABA, M.D. [facility] [id number] [place] [facility] 2017-03-26 12:00:00 2017-03-26 12:00:00 Appointmen t; LISSA DURHAM M.D. MEMON, SABA, M.D. [facility] [id number] [place] [facility] 2017-03-19 12:00:00 2017-03-19 12:00:00 Appointmen t; LISSA DURHAM M.D. MEMON, SABA, M.D. [facility] [id number] [place] 2017-02-12 14:00:00 2017-02-12 14:00:00 Appointdashawn castillo; LISSA DURHAM M.D. MEMON, SABA, M.D. [facility] [id number] [place] [facility] 2017-01-06 13:00:00 2017-01-06 13:00:00 Appointdashawn castillo; LISSA DURHAM M.D. MEMON, SABA, M.D. [facility] UTP [id number] [place] Results Test Description Test Time Test Comments Results Result Co mments Source Marcelo MorenoHEMOGLOBIN [id number] 00:00:00* Test Item Value Reference Range Interpretation Comme nts HEMOGLOBIN A1c (test code = 46273) 5.3 % Marcelo MorenoCBC W/AUTO [id number] 00:00:00* Test Item Value Reference Range Interpretation Comme nts WBC (test code = 1001) 10.2 K/UL RBC (test code = 1002) 4.93 M/UL HEMOGLOBIN (test code = 1003) 16.0 G/DL HEMATOCRIT (test code = 1004) 45.4 % MCV (test code = 1005) 92.1 fL MCH (test code = 1006) 32.5 PG MCHC (test code = 1007) 35.2 G/DL RDW (test code = 1038) 11.8 % NEUTROPHILS (test code = 1008) 63.7 % LYMPHOCYTES (test code = 1010) 27.0 % MONOCYTES (test code = 1011) 7.6 % EOSINOPHILS (test code = 1012) 1.0 % BASOPHILS (test code = 1013) 0.5 % IMMATURE GRANULOCYTES (test code = 1036) 0.2 % NUCLEATED RBCS (test code = 1065) 0.0 /100WBC'S PLATELET COUNT (test code = 1015) 379 K/UL ABSOLUTE NEUTROPHILS (test c ode = 1066) 6.47 K/UL ABSOLUTE LYMPHOCYTES (test c ode = 1067) 2.74 K/UL ABSOLUTE MONOCYTES (test cod e = 1068) 0.77 K/UL ABSOLUTE EOSINOPHILS (test c ode = 1040) 0.10 K/UL ABSOLUTE BASOPHILS (test cod e = 1069) 0.05 K/UL ABS IMMATURE GRANULOCYTES (t est code = 1020) 0.02 K/UL ABS NUCLEATED RBCS (test cod e = 33223) 0.00 K/UL Marcelo Yosi MorenoCOMPREHENSIVE METABOLIC [id number] 00:00:00* Test Item Value Reference Range Interpretation Comme nts GLUCOSE (test code = 2217) 91 MG/DL BUN (test code = 2208) 10 MG/DL CREATININE (test code = 2214) 0.85 MG/DL eGFR (2020 CKD-EPI) (test co de = 14287) 98 ML/MIN/1.73 CALC BUN/CREAT (test code = 2235) 12 RATIO SODIUM (test code = 2231) 137 MEQ/L POTASSIUM (test code = 2228) 3.9 MEQ/L CHLORIDE (test code = 2215) 99 MEQ/L CARBON DIOXIDE (test code = 2206) 20 MEQ/L CALCIUM (test code = 2209) 10.3 MG/DL PROTEIN, TOTAL (test code = 2229) 8.1 G/DL ALBUMIN (test code = 2201) 5.4 G/DL CALC GLOBULIN (test code = 2240) 2.7 G/DL CALC A/G RATIO (test code = 2234) 2.0 RATIO BILIRUBIN, TOTAL (test code = 2207) 0.9 MG/DL ALKALINE PHOSPHATASE (test code = 2204) 45 U/L AST (test code = 2218) 21 U/L ALT (test code = 2219) 18 U/L Marcelo Moreno
[2024-11-28 15:17] LABS: SARS-CoV-2 Antigen CONTROL BLUE LINE VIS/BG OK; SARS-CoV-2 Antigen Rapid Res Negative (Negative)
--- NOTE | 2024-11-28 15:21 | ER ---
Nurse's Notes [facility] Name: Dawna Hopkins Age: 24 yrs Sex: Female : 2000 Arrival Date: 11/28/2024 Time: 13:27 Bed IW1 Private MD: Diagnosis: Respiratory syncytial virus as the cause of diseases classified elsewhere Presentation: 11/28 14:16 Chief complaint: Patient states: cough, runny nose and nasal congestion that began 3 ss days ago. Pt believes she may have RSV as her nephew had it recently. Coronavirus screen: Client denies travel out of the [place] in the last 14 days. Ebola Screen: Patient denies exposure to infectious person. Patient denies travel to an Ebola-affected area in the 21 days before illness onset. Initial Sepsis Screen: Does the patient meet any 2 criteria? No. Patient's initial sepsis screen is negative. Does the patient have a suspected source of infection? No. Patient's initial sepsis screen is negative. Risk Assessment: Do you want to hurt yourself or someone else? Patient reports no desire to harm self or others. Onset of symptoms was November 25, 2024. 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 - Infectious Disease History:: Denies. - Social history:: Smoking status: Patient reports the use of cigarette tobacco products, smokes one-half pack cigarettes per day. Vital Signs: 14:16 BP 131 / 93; Pulse 75; Resp 15; Temp 98.6(O); Pulse Ox 100% on R/A; Weight 56.7 kg; ss Height 5 ft. 1 in. ; 14:16 Body Mass Index 23.62 (56.70 kg, 154.94 cm) ED Course: 13:31 Patient arrived in ED. ra3 13:32 [facility] Martinez [facility]-C [facility] sb4 13:32 Dakotah Rodriguez MD is Attending Physician. sb4 14:19 Triage completed. ss 14:19 Arm band placed on right wrist. ss 14:33 RSV Sent. 14:33 Strep Sent. 14:33 Flu Sent. 14:33 SARS RAPID Sent. 15:41 Senia Huston, RN is Primary Nurse. 15:41 No provider procedures requiring assistance completed. Patient did not have IV access ss during this emergency room visit. Administered Medications: No medications were administered Outcome: 15:21 Discharge ordered by . stacey 15:41 Discharged to home ambulatory, 15:41 Condition: good 15:41 Discharge instructions given to patient, Instructed on discharge instructions, follow up and referral plans. Demonstrated understanding of instructions, follow-up care, 15:41 Patient left the ED. Signatures: Senia Huston RN RN Roya Martinez, KENDALL ARGUETA sb4 Queenie Amaya ra3
--- NOTE | 2024-11-28 15:21 | EDPHYS ---
Physician Documentation [facility] Name: Dawna Hopkins Age: 24 yrs Sex: Female : 2000 Arrival Date: 11/28/2024 Time: 13:27 Bed IW1 Private MD: ED Physician Dakotah Rodriguez HPI: 11/28 14:52 This 24 yrs old Female presents to ER via Ambulatory with complaints of Flu Symptoms. sb4 14:52 Patient reports flulike symptoms for about 3 days now. States that one of her family sb4 members has RSV and she is concerned that she has a or some other viral infection. She does not want to spread it to her other family members. Reports cough, congestion, nasal drainage, ear fullness. 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 - Infectious Disease History:: Denies. - Social history:: Smoking status: Patient reports the use of cigarette tobacco products, smokes one-half pack cigarettes per day. ROS: 14:53 Constitutional: Negative for fever, chills, and weight loss, sb4 14:53 ENT: Positive for rhinorrhea, sinus congestion, 14:53 Respiratory: Positive for cough, 14:53 All other systems are negative, Exam: 14:53 Constitutional: This is a well developed, well nourished patient who is awake, alert, sb4 and in no acute distress. Head/Face: Normocephalic, atraumatic. Eyes: Extra-ocular motions intact. Periorbital areas with no swelling, redness, or edema. ENT: Mucous membranes moist. Cardiovascular: Regular rate and rhythm with a normal S1 and S2. Respiratory: No increased work of breathing, no retractions or nasal flaring. Abdomen/GI: Soft, non-tender, no distension. Skin: Warm, dry with normal turgor. Normal color with no rashes, no lesions, and no evidence of cellulitis. 14:53 ENT: TM's: are normal, Posterior pharynx: erythema, that is moderate, 14:53 Respiratory: Breath sounds: are clear throughout, Vital Signs: 14:16 BP 131 / 93; Pulse 75; Resp 15; Temp 98.6(O); Pulse Ox 100% on R/A; Weight 56.7 kg; ss Height 5 ft. 1 in. ; 14:16 Body Mass Index 23.62 (56.70 kg, 154.94 cm) ss MDM: 13:50 Medical Screening Exam initiated sb4 17:13 Data reviewed: vital signs, nurses notes, lab test result(s), and as a result, I will sb4 discharge patient. Counseling: I had a detailed discussion with the patient and/or guardian regarding the historical points, exam findings, and any diagnostic results supporting the discharge/admit diagnosis, lab results, the need for outpatient follow up, for definitive care, to return to the emergency department if symptoms worsen or persist or if there are any questions or concerns that arise at home. 11/28 14:23 Order name: SARS RAPID; Complete Time: 15:20 sb4 11/28 14:23 Order name: Flu; Complete Time: 15:20 sb4 11/28 14:23 Order name: Strep sb4 11/28 14:23 Order name: RSV; Complete Time: 15:20 sb4 11/28 15:19 Order name: Throat Culture EDMS Administered Medications: No medications were administered Disposition: 11/29 09:05 Co-signature as Attending Physician, Dakotah Rodriguez MD I reviewed the patient's care rn provided by the Advanced Practice Provider and agree with the diagnosis and treatment plan. Disposition Summary: 11/28/24 15:21 Discharge Ordered Notes: Location: Home sb4 Problem: new sb4 Symptoms: are unchanged sb4 Condition: Stable sb4 Diagnosis - Respiratory syncytial virus as the cause of diseases classified elsewhere sb4 Followup: sb4 - With: Emergency Department - When: As needed - Reason: Trouble breathing, Worsening of condition Discharge Instructions: - Discharge Summary Sheet sb4 - Respiratory Syncytial Virus Infection, Adult sb4 Forms: - Patient Portal Instructions sb4 - Leadership Thank You Letter sb4 - Work release form ra3 Signatures: Dispatcher [employer] Dakotah Momin MD MD rn Blanchard, Shelby, RN RN ss Brown, Sophia, PA-C PA-C sb4
[2024-11-28 15:46] VITALS: BP 131/93; TEMP 98.6; O2SAT 100
== END 2024-11-28 15:41 | disposition home or self-care (01) ==
LOC: ER 13:27
DX: R05.9 Cough, unspecified (principal); B97.4 Respiratory syncytial virus as the cause of diseases classified elsewhere; F17.210 Nicotine dependence, cigarettes, uncomplicated; Z11.52 Encounter for screening for COVID-19
CPT/HCPCS: 36415; 87070; 87081; 87804; 87807; 87811; 99283

== ENCOUNTER 2025-01-30 17:19 | Inpatient (IN) | payer BC ==
--- OUTSIDE RECORDS SUMMARY | 2025-01-30 17:24 | XMS REPORT | Continuity of Care Document ---
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 15:00:00 Appointmen t; LISSA DURHAM M.D. MEMON, SABA, M.D. [facility] [id number] [place] [facility] [place] 2017-07-30 14:00:00 2017-07-30 14:00:00 Appointmen t; LISSA DURHAM M.D. MEMON, SABA, M.D. [facility] [id number] [place] 2017-04-17 11:30:00 2017-04-17 11:30:00 Appointmen t; LISSA DURHAM M.D. MEMON, SABA, M.D. [facility] [id number] [place] [facility] [place] 2017-03-26 12:00:00 2017-03-26 12:00:00 Appointmen t; LISSA DURHAM M.D. MEMON, SABA, M.D. [facility] [id number] [place] [facility] 2017-03-19 12:00:00 2017-03-19 12:00:00 Appointmen t; LISSA DURHAM M.D. MEMON, SABA, M.D. [facility] [id number] [place] [facility] 2017-02-12 14:00:00 2017-02-12 14:00:00 Appointmen t; LISSA DURHAM M.D. MEMON, SABA, M.D. [facility] [id number] [place] [facility] 2017-01-06 13:00:00 2017-01-06 13:00:00 Appointmen t; LISSA DURHAM M.D. MEMON, SABA, M.D. [facility] [id number] [place] [facility] Results Test Description Test Time Test Comments Results Result Co mments Source [facility] complete with [id number] 15:08:23HISTORY: ?Abnormal uterine bleeding. TECHNIQUE: Both transabdominal and transvaginal pelvic ultrasound studieswere completed by the technologist. FINDINGS: Uterus is of normal size and shape, measures approximately 7 x3.7 x 4.6 cm in size with homogeneous echo texture of the myometrium. Small7 mm na bothian cyst seen in the cervix. Endometrial echo complex is 6.3 mm.However, hypoechoic areas are seen within the endometrial cavity whichcould be retained secretions/blood clots. No free fluid in the cul-de-sac. Right ovary is 4 x 2.7 x 0.8 cm ( 6.59 ml) and left ovary is 4.3 x 2.9 x1.2 cm ( 7.64 ml). Small follicles in both ovaries noted, consistent withphysiologic changes. CONCLUSIONS: Irregular appearance of the endometrial lining could be due toretained secretions/blood clots and/or small endometrial polyp.[facility] [id number] 00:00:00* Test Item Value Reference Range Interpretation Comme nts HEMOGLOBIN A1c (test code = 64936) 4.9 % Marcelo MorenoCOMPREHENSIVE METABOLIC [id number] 00:00:00* Test Item Value Reference Range Interpretation Comme nts GLUCOSE (test code = 2217) 75 MG/DL BUN (test code = 2208) 15 MG/DL CREATININE (test code = 2214) 1.05 MG/DL eGFR (2020 CKD-EPI) (test co de = 83413) 76 ML/MIN/1.73 CALC BUN/CREAT (test code = 2235) 14 RATIO SODIUM (test code = 2231) 134 MEQ/L POTASSIUM (test code = 2228) 4.6 MEQ/L CHLORIDE (test code = 2215) 93 MEQ/L CARBON DIOXIDE (test code = 2206) 23 MEQ/L CALCIUM (test code = 2209) 10.9 MG/DL PROTEIN, TOTAL (test code = 2229) 8.4 G/DL ALBUMIN (test code = 2201) 5.5 G/DL CALC GLOBULIN (test code = 2240) 2.9 G/DL CALC A/G RATIO (test code = 2234) 1.9 RATIO BILIRUBIN, TOTAL (test code = 2207) 1.1 MG/DL ALKALINE PHOSPHATASE (test code = 2204) 48 U/L AST (test code = 2218) 29 U/L ALT (test code = 2219) 18 U/L Marcelo MorenoHIV 1/2 4TH GEN, RFLX [id number] 00:00:00* Test Item Value Reference Range Interpretation Comme nts HIV 1/2 4TH GEN, RFLX CONF ( test code = 3514) NON-REACTIVE Marcelo MorenoHEPATITIS PROFILE (A,B,C)2024-11-09 00:00:00* Test Item Value Reference Range Interpretation Comme nts HEPATITIS A TOTAL AB (test c ode = 2725) REACTIVE HEPATITIS B SURF AG (test co de = 2739) NON-REACTIVE HEP B CORE TOTAL AB (test co de = 2729) NON-REACTIVE HEPATITIS B SURFACE AB (test code = 2737) NON-REACTIVE HEPATITIS C ANTIBODY (test c ode = 4699) NON-REACTIVE INTERPRETATION HEPATITIS A: (test code = 2552) (NOTE) INTERPRETATION HEPATITIS B: (test code = 58393) (NOTE) INTERPRETATION HEPATITIS C: (test code = 76871) (NOTE) Marcelo MorenoHEPATITIS A IgM [REFLEX]2024-11-09 00:00:00* Test Item Value Reference Range Interpretation Comme nts HEPATITIS A IgM (test code = 2728) NON-REACTIVE Marcelo MorenoLIPID [id number] 00:00:00* Test Item Value Reference Range Interpretation Comme nts CHOLESTEROL (test code = 2210) 208 MG/DL TRIGLYCERIDES (test code = 2232) 222 MG/DL HDL CHOLESTEROL (test code = 2220) 55 MG/DL CALC LDL CHOL (test code = 2237) 119 MG/DL RISK RATIO LDL/HDL (test cod e = 2238) 2.16 RATIO Marcelo MorenoHEMOGLOBIN [id number] 00:00:00* Test Item Value Reference Range Interpretation Comme madison HEMOGLOBIN A1c (test code = 88398) 4.9 % Marcelo MorenoCOMPREHENSIVE METABOLIC [id number] 00:00:00* Test Item Value Reference Range Interpretation Comme nts GLUCOSE (test code = 2217) 75 MG/DL BUN (test code = 2208) 15 MG/DL CREATININE (test code = 2214) 1.05 MG/DL eGFR (2020 CKD-EPI) (test co de = 26488) 76 ML/MIN/1.73 CALC BUN/CREAT (test code = 2235) 14 RATIO SODIUM (test code = 2231) 134 MEQ/L POTASSIUM (test code = 2228) 4.6 MEQ/L CHLORIDE (test code = 2215) 93 MEQ/L CARBON DIOXIDE (test code = 2206) 23 MEQ/L CALCIUM (test code = 2209) 10.9 MG/DL PROTEIN, TOTAL (test code = 2229) 8.4 G/DL ALBUMIN (test code = 2201) 5.5 G/DL CALC GLOBULIN (test code = 2240) 2.9 G/DL CALC A/G RATIO (test code = 2234) 1.9 RATIO BILIRUBIN, TOTAL (test code = 2207) 1.1 MG/DL ALKALINE PHOSPHATASE (test code = 2204) 48 U/L AST (test code = 2218) 29 U/L ALT (test code = 2219) 18 U/L Marcelo MorenoHIV 1/2 4TH GEN, RFLX [id number] 00:00:00* Test Item Value Reference Range Interpretation Comme nts HIV 1/2 4TH GEN, RFLX CONF ( test code = 3514) NON-REACTIVE Marcelo MorenoGREGORYPATITIS PROFILE (A,B,C)2024-11-09 00:00:00* Test Item Value Reference Range Interpretation Comme nts HEPATITIS A TOTAL AB (test c ode = 2725) REACTIVE HEPATITIS B SURF AG (test co de = 2739) NON-REACTIVE HEP B CORE TOTAL AB (test co de = 2729) NON-REACTIVE HEPATITIS B SURFACE AB (test code = 2737) NON-REACTIVE HEPATITIS C ANTIBODY (test c ode = 4675) NON-REACTIVE INTERPRETATION HEPATITIS A: (test code = 2552) (NOTE) INTERPRETATION HEPATITIS B: (test code = 45970) (NOTE) INTERPRETATION HEPATITIS C: (test code = 78189) (NOTE) Marcelo MorenoGREGORYPATITIS A IgM [REFLEX]2024-11-09 00:00:00* Test Item Value Reference Range Interpretation Comme nts HEPATITIS A IgM (test code = 2728) NON-REACTIVE Marcelo Deluca JoshLIPID [id number] 00:00:00* Test Item Value Reference Range Interpretation Comme nts CHOLESTEROL (test code = 2210) 208 MG/DL TRIGLYCERIDES (test code = 2232) 222 MG/DL HDL CHOLESTEROL (test code = 2220) 55 MG/DL CALC LDL CHOL (test code = 2237) 119 MG/DL RISK RATIO LDL/HDL (test cod e = 2238) 2.16 RATIO Marcelo MorenoHEMOGLOBIN [id number] 00:00:00* Test Item Value Reference Range Interpretation Comme nts HEMOGLOBIN A1c (test code = 72273) 5.3 % Marcelo MorenoCBC W/AUTO [id number] 00:00:00* Test Item Value Reference Range Interpretation [...] ABS NUCLEATED RBCS (test cod e = 86810) 0.00 K/UL Marcelo MorenoCOMPREHENSIVE METABOLIC [id number] 00:00:00* Test Item Value Reference Range Interpretation Comme nts GLUCOSE (test code = 2217) 91 MG/DL BUN (test code = 2208) 10 MG/DL CREATININE (test code = 2214) 0.85 MG/DL eGFR (2020 CKD-EPI) (test co de = 92288) 98 ML/MIN/1.73 CALC BUN/CREAT (test code = [...] (test code = 2219) 18 U/L Marcelo Deluca JoshLIPID [id number] 00:00:00* Test Item Value Reference Range Interpretation Comme nts CHOLESTEROL (test code = 2210) 202 MG/DL TRIGLYCERIDES (test code = 2232) 222 MG/DL HDL CHOLESTEROL (test code = 2220) 41 MG/DL CALC LDL CHOL (test code = 2237) 125 MG/DL RISK RATIO LDL/HDL (test cod e = 2238) 3.05 RATIO Marcelo Deluca JoshHEMOGLOBIN [id number] 00:00:00* Test Item Value Reference Range Interpretation Comme nts HEMOGLOBIN A1c (test code = 05754) 5.3 % Marcelo Deluca JoshCBC W/AUTO [id number] 00:00:00* Test Item Value Reference Range Interpretation [...] ABS NUCLEATED RBCS (test cod e = 27279) 0.00 K/UL Marcelo F JoshCOMPREHENSIVE METABOLIC [id number] 00:00:00* Test Item Value Reference Range Interpretation Comme nts GLUCOSE (test code = 2217) 91 MG/DL BUN (test code = 2208) 10 MG/DL CREATININE (test code = 2214) 0.85 MG/DL eGFR (2020 CKD-EPI) (test co de = 86185) 98 ML/MIN/1.73 CALC BUN/CREAT (test code = [...] (test code = 2219) 18 U/L Marcelo MorenoLIPID [id number] 00:00:00* Test Item Value Reference Range Interpretation Comme nts CHOLESTEROL (test code = 2210) 202 MG/DL TRIGLYCERIDES (test code = 2232) 222 MG/DL HDL CHOLESTEROL (test code = 2220) 41 MG/DL CALC LDL CHOL (test code = 2237) 125 MG/DL RISK RATIO LDL/HDL (test cod e = 2238) 3.05 RATIO Marcelo MorenoHEMOGLOBIN [id number] 00:00:00* Test Item Value Reference Range Interpretation Comme nts HEMOGLOBIN A1c (test code = 83330) 5.3 % Marcelo MorenoCBC W/AUTO [id number] 00:00:00* Test Item Value Reference Range Interpretation [...] ABS NUCLEATED RBCS (test cod e = 89108) 0.00 K/UL Marcelo Deluca JoshCOMPREHENSIVE METABOLIC [id number] 00:00:00* Test Item Value Reference Range Interpretation Comme nts GLUCOSE (test code = 2217) 91 MG/DL BUN (test code = 2208) 10 MG/DL CREATININE (test code = 2214) 0.85 MG/DL eGFR (2020 CKD-EPI) (test co de = 97682) 98 ML/MIN/1.73 CALC BUN/CREAT (test code = [...] (test code = 2219) 18 U/L Marcelo MorenoLIPID [id number] 00:00:00* Test Item Value Reference Range Interpretation Comme nts CHOLESTEROL (test code = 2210) 202 MG/DL TRIGLYCERIDES (test code = 2232) 222 MG/DL HDL CHOLESTEROL (test code = 2220) 41 MG/DL CALC LDL CHOL (test code = 2237) 125 MG/DL RISK RATIO LDL/HDL (test cod e = 2238) 3.05 RATIO Marcelo Deluca Josh Notes Date/Time Note Provider Source 2025-01-20 08:56:50 Name and verified, pt is aware of her pap smear results and need for colpo, pt states she is willing to do her colpo for further testing but does not want to see Dr. Sanchez. Pt states "she was not happy with her last visit and did not like how the dr made her feel and would like to see a different provider." Pt states she was seeing Dr. Lu and was trying to see someone closer to her work in [place]. Pt was offered an appointment with Ms Diaz, pt agreed. Colpo procedure was explained to pt and pt verbalized understanding. Hattie Leiva RN 01/20/2025 9:10 AM Hattie Leiva RN [facility] 2025-01-19 18:10:59 Jared Lopez is a 24 year old female is calling to discuss Lab results. Alejandrina Noel MA 01/19/2025 6:11 PM Alejandrina Noel MA [facility] 2025-01-18 16:29:09 Returned patients call. Patient given results per Dr. Sanchez: Mary Sanchez MD 01/18/2025 3:57 PM CDT Abnormal ASCUS pap, awaiting HPV tying. All questions answered to the best of my ability. Patient advised plan of care will be updated when HPV test is completed. HPV information sent via [employer]. Tommie Arnold RN 01/18/2025 4:34 PM Tommie Arnold RN [facility] 2025-01-18 16:07:50 Jared Lopez is a 24 year old female calling requesting to talk with nurse about veiwing Retrophinhart results. Please contact patient at [phone] (home) Luh Dowling [facility] 2024-12-22 08:30:00 Called pt and informed of usg results and recommended POC. Pt agrees with f/u appt in [place]. Instructed will route to provider for referral. Verbalized understanding. Jennifer Land LVN 12/22/2024 2:05 PM IFIED OPHTHALMIC TECHNICIAN Jennifer Land LVN [facility] Marcelo Sheppard [facility]2025-02-11 00:00:00 Marcelo Sheppard [facility]2025-01-20 00:00:00 Marcelo [facility]2024-10-25 15:21:24 Attempted to contact patient x3, left voicemail to contact clinic. Daksha [place] [address]-10-01 11:15:49 Called patient and scheduled appointment for 08/02/24 at patient request. Daksha [place] 865164-09-16 11:54:30 Called and scheduled appointment fort 07/06/24. Daksha [place] 865164-09-16 08:06:19 Jared Lopez is a 23 year old female Patient calling in requesting an appt this week, as early as possible. Patient has work at 8 am. Declined appt from [facility]. Please advise Raeann MiAs[facility] [id number] 16:44:00 Regarding: mensurating/ bleeding continuously x 1 month ----- Message from Rico Mendez sent at 07/01/2024 4:41 PM CDT ----- Jared Lopez is a 23 year old female Has IUD, has been mensurating/ bleeding continuously x 1 month [facility] - [id number] 16:44:00 Adult Triage Assessment Last Clinic Visit: 04/09/24 OB for contraception Primary Symptom: bleeding with IUD Onset / Duration: 1 month Location / Description: uterine/vaginal Pain / Severity: cramping /, intermittently Associated Symptoms: IUD placed Mirina in 2019- almost due for replacement. 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 Changing panty liner x 2-3 times per day and uses 1-2 tampons per day. History of BV a few months ago. "Quite a bit" of discharge- pink/red, smells like "BV mixed with period". Little dizziness, able to walk like normal. Denies "99.9%" but no test taken. Last intercourse: end may. Denies pain with intercourse, but change in smell after intercourse. Fever / Method: denies Hydration: eating and drinking like normal. Denies burning or pain with urination. Treatment so far: probiotic taken this morning (to take BID) along with anxiety medications. No medication for pain. Effect on ADL's: some LMP: 06/05/24- hasn't stopped since Pre-existing condition / Immunocompromised: Past Medical History: Diagnosis Date Anxiety 2015 on meds managed by psych Depression 2015 on meds managed by psych STD (sexually transmitted disease) 2023 Chlamydia Substance abuse Marijuana Jared Lopez is a 23 year old female who calls with complaints of 1 month of vaginal bleeding and odor to discharge. Denies severe dizziness or pain. Assessment and triage completed, per protocol patient should be evaluated within 24 hours, offered appointment for tomorrow, but patient declined as she has work, will call office tomorrow. Patient verbalizes understanding and agrees to follow plan of care. Denies other questions at this time, call back warnings given. Erum Campuzano RN [facility] Nurse Triage Reason for Disposition [1] MILD abdominal pain (e.g., does not interfere with normal activities) AND [2] pain comes and goes (cramps) AND [3] present > 48 hours Protocols used: Contraception - IUD Symptoms and [id number] [place] 12249-06-25 10:50:45 Patient informed medication sent to pharmacy, verbalized understanding. Shirley Anaya [place] 028094-06-25 10:45:42 Jared Lopez is a 23 year old female Pt returning nurse call. Please call [phone] (home) T Yesenia SheppardJuan [place] 903204-06-25 07:52:19 Attempted to call patient, no answer, left vm. [place] 524814-06-25 07:45:13 Positive for BV. Prescription has been sent to pharmacy. Suggest abstaining from intercourse for 2 weeks, avoiding scented soaps/detergents, and/or douching. RTC in 2 weeks if symptoms persist or worsen. ELVIS Edwards 04/13/2024 7:49 AM [place] [address]249-06-24 13:51:17 Addressed via [employer]. Shirley Anaya [facility]2024-06-24 13:35:46 Jared Lopez is a 23 year old female Patient is calling in regards to results Please advise [phone] (home) [facility] [place] [place] [facility] [address] Kamilah Bhavna JuanCher[facility] [id number] 09:06:53 Patient informed of results from 04/09, informed will route to provider for treatment for BV. [id number] 08:54:35 Jared Lopez is a 23 year old female is calling for test results. Shireen Tran SantiagoNancyCarolin[facility]
[2025-01-30] MEDS ORDERED: NALOXONE HCL 2 MG/2 ML VIAL ONE (17:27)
[2025-01-30] MEDS ORDERED: D50W 25 GM/50 ML SYRINGE IV ONE (17:27)
[2025-01-30 17:54] LABS: Absolute Lymphocytes (CBC) 2.3 K/uL (0.7-4.9); Hematocrit 44.7 % (36.0-45.0); Hemoglobin 15.8 g/dL (12.0-15.0); Lymphocytes % 12.5 % (15.3-44.8); MCH 32.5 pg (27.0-35.0); MCHC 35.4 g/dL (32.0-36.0); MCV 91.6 fL (80-100); MPV 7.2 fL (7.6-11.3); Monocytes % 5.7 % (3.3-12.3); Neutrophils % 81.8 % (41.7-73.7); Platelets 335 thou/uL (152-406); RBC Red Blood Cell Count 4.88 M/uL (3.86-4.86); Red Cell Distribution Width 12.5 % (12.1-15.2)
[2025-01-30 17:57] LABS: Specific Gravity 1.014 (1.005-1.030)
[2025-01-30 17:58] LABS: Specific Gravity 1.014 (1.005-1.030); Sqamous Epithelial <5 /HPF (None Seen); Urine Bacteria <20 /HPF (<20); Urine Bilirubin NEGATIVE (Negative); Urine Blood Negative (Negative); Urine Clarity Extremely Turbid (Clear); Urine Color Light-Yellow (Yellow); Urine Crystals Unidentified Few /HPF (None Seen); Urine Culture Reflex Order REFLEXED; Urine Glucose NEGATIVE (Negative); Urine Ketones NEGATIVE (Negative); Urine Microscopic Reflex YN ORDER UMIC; Urine Mucus 1+ /HPF (None Seen); Urine Nitrite NEGATIVE (Negative); Urine Protein TRACE (Negative); Urine RBC <5 /HPF (None Seen); Urine Urobilinogen Normal (Normal); Urine WBC 20-50 /HPF (<5); Urine WBC Clump Occasional /HPF (None Seen); Urine Yeast (Budding) Trace /HPF (None Seen)
[2025-01-30 18:02] LABS: PT Prothrombin Time 11.3 SECONDS (10-13.0); PTT, Activated Partial Thromb 24.9 SECONDS (27.2-37.4); Protime INR 0.99
[2025-01-30 18:05] LABS: Barbiturates NEGATIVE (NEGATIVE); Benzodiazepines POSITIVE (NEGATIVE); Cocaine NEGATIVE (NEGATIVE); METHAMPHETAM NEGATIVE (NEGATIVE); Methadone NEGATIVE (NEGATIVE); Opiates NEGATIVE (NEGATIVE); Phencyclidine NEGATIVE (NEGATIVE); THC Cannibis POSITIVE (NEGATIVE)
[2025-01-30] MEDS ORDERED: ETOMIDATE 20 MG/10 ML VIAL IV ONE (18:09)
[2025-01-30 18:14] LABS: ALT/SGPT 23 U/L (13-56); AST/SGOT 44 U/L (15-37); Albumin 4.4 g/dL (3.4-5.0); Albumin/Globulin Ratio 1.3 (1.1-1.8); Alkaline Phosphatase 47 U/L (45-117); Anion Gap 11.8 mEq/L (5.0-15.0); BUN Blood Urea Nitrogen 9 mg/dL (7-18); Bicarbonate 24 mEq/L (21-32); Bilirubin Direct 0.2 mg/dL (0-0.2); Bilirubin Indirect, Calculated 0.3 mg/dL (0.2-0.8); Bilirubin Total 0.5 mg/dL (0.2-1.0); Globulin 3.3 g/dL (2.3-3.5); Glomerular Filtration Rate 70 ml/min (=/>90); Glucose Level 121 mg/dL (74-106); Potassium 3.8 mEq/L (3.5-5.1); Protein, Total 7.7 g/dL (6.4-8.2); Sodium Level 137 mEq/L (136-145)
--- NOTE | 2025-01-30 18:57 | ER ---
Nurse's Notes [facility] Name: Dawna Hopkins Age: 24 yrs Sex: Female : 2000 Arrival Date: 01/30/2025 Time: 17:19 Bed 4 Private MD: Diagnosis: Intentional overdose;Altered mental status, unspecified;Rhabdomyolysis Presentation: 01/30 17:35 Chief complaint: EMS states: PT FOUND DOWN BY PARENT AT HOME, SUICIDE NOTE ON SCENE, 2 bp EMPTY BENZO PILL BOTTLE. UNKNOWN DOWNTIME. BGL 60 EN ROUTE. Coronavirus screen: At this time, the client does not indicate any symptoms associated with coronavirus-19. Ebola Screen: No symptoms or risks identified at this time. Initial Sepsis Screen: Does the patient meet any 2 criteria? No. Patient's initial sepsis screen is negative. Does the patient have a suspected source of infection? No. Patient's initial sepsis screen is negative. Risk Assessment: Do you want to hurt yourself or someone else? Patient reports desire/thoughts of hurting themselves or someone else. Provider notified. Onset of symptoms is unknown. Care prior to arrival: Medication(s) given: NARCAN Glucose check: 60. 17:35 Method Of Arrival: EMS: [facility] bp 17:35 Acuity: AZIZA 2 bp Triage Assessment: 17:37 General: Appears unkempt, Behavior is uncooperative, unresponsive. Pain: Unable to use bp pain scale. Does not appear to understand pain scale. 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 Neuro: Level of Consciousness is stuporous, Oriented to none Moves all extremities. Full function. Cardiovascular: Rhythm is sinus tachycardia. Respiratory: Airway is compromised Respiratory effort is even, unlabored. GI: No signs and/or symptoms were reported involving the gastrointestinal system. : No signs and/or symptoms were reported regarding the genitourinary system. Derm: No deficits noted. Musculoskeletal: No deficits noted. 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:37 LMP 01/30/2025, unknown bp Historical: - Allergies: 17:37 GABAPENTIN; bp - Home Meds: 18:41 zolpidem 10 mg Oral tablet every day at bedtime [Active]; venlafaxine 37.5 mg oral aa5 Capsule, ER 24 hr daily [Active]; clonazepam 0.5 mg Oral tablet 3 times per day [Active]; lamotrigine 150 mg oral tablet daily [Active]; diazepam 10 mg Oral tablet daily PRN [Active]; trazodone 50 mg Oral tablet every day at bedtime [Active]; Caplyta 42 mg oral capsule daily [Active]; venlafaxine 75 mg oral Tablet, Extended Release 24 hr daily [Active]; ibuprofen 200 mg Oral tablet [Active]; tramadol 50 mg Oral tablet 1-2 tabs every 6hrs PRN [Active]; - PMHx: 17:37 Anxiety; Asthma; Bipolar disorder; Seizure; bp - Immunization history:: Adult Immunizations unknown. - Infectious Disease History:: Denies. - Social history:: Smoking status: unknown. - History obtained from: EMS. Screenin:[facility] ED Fall Risk Assessment (Adult) History of falling in the last 3 months, bp including since admission No falls in past 3 months (0 pts) Confusion or Disorientation Yes (5 pts) Intoxicated or Sedated Yes (3 pts) Impaired Gait Yes (1 pt) Mobility Assist Device Used No (0 pt) Altered Elimination No (0 pt) Score/Fall Risk Level 3 or more points = High Risk Oriented to surroundings. Abuse screen: Denies threats or abuse. Denies injuries from another. Nutritional screening: No deficits noted. Tuberculosis screening: No symptoms or risk factors identified. Assessment: 17:27 General: Appears distressed, unkempt, Behavior is uncooperative, unresponsive. bp 17:30 Reassessment: PT CONTINUES TO BE UNCOOPERATIVE AND AGITATED. NON-VERBAL AND NOT bp RESPONDING TO VERBAL DIRECTION. PT FLAILING LIMBS, AT RISK FOR INJURY TO SELF AND STAFF. RESTRAINTS PLACED FOR PT SAFETY. 17:45 Reassessment: reports family reported pt takes unknown narcotic, unknown mood aa5 stabilizer, Ativan, and trazodone. From previous ER visits pt takes Cymbalta, Xanax, and Lorazepam. also states pt's family reported last known normal was "before midnight" . 17:50 Reassessment: Spoke to poison control, spoke to pharmaceutical service representative Omar, case # [id number], aa5 recommendations are as follow: labs, EKG, cardiac monitoring, protect airway, magnesium and potassium levels should be high normal level, administer magnesium and potassium as needed and repeat EKG after administration, QRS is considered prolonged at 120, pt's current QTC is prolonged at 487, treat hypotension with IV fluids and vasopressors, Haldol and Geodon administration are not recommended because they lower seizure threshold, if seizure activity treat with Benzos, Flumazenil administration is not recommended. Dr. Rodriguez was notified of recommendations.. 18:45 Reassessment: Dr. Rodriguez at bedside speaking with patients family regarding POC. kc6 19:10 Reassessment: ASSUMING PT CARE FROM ARACELI GILBERT. PT INTUBATED AT THIS TIME. NO SEDATION dd2 NOTED. PT IN SOFT RESTRAINTS X 4. SISTER AT BEDSIDE. Neuro: PT INTUBATED. Cardiovascular: Patient's skin is warm and dry. Rhythm is sinus tachycardia. Respiratory: Airway via oral intubation Respiratory effort is even, unlabored, Respiratory pattern is regular, symmetrical, Ventilator assessment: ET Tube: Respiratory Rate: 16 FiO2: 100%. PEEP: 5 Breath sounds are clear bilaterally. GI: Abdomen is non-distended, NGT in place, to suction. Site clean. : No deficits noted. Humphrey in place. EENT: No deficits noted. Nares on right NGT PRESENT AND SEURED. Derm: No deficits noted. No signs and/or symptoms reported regarding the dermatologic system. 22:34 Reassessment: SPOKE WITH OMAR AT POISON CONTROL REGARDING F/U ON PT. RECOMMENDATIONS dd2 FOLLOWED: F/U EKG. IF QTC >470 SUGGESTED INFUSION OF MAGNESIUM TO KEEP LEVELS BETWEEN 2-2.5 AND INFUSION OF POTASSIUM TO KEEP LEVELS BETWEEN 4-4.5. REDRAW SALICYLATE LEVEL. IF WNL NO FURTHER DRAW, IF LEVEL IS INCREASING, REDRAW EVERY [address] PICKARD WITH RECOMMENDATIONS. 23:31 Reassessment: PT'S EARRINGS REMOVED BY MOTHER. SMALL ROUND WOODEN BALL EARRINGS. dd2 23:46 Reassessment: REPORT CALLED TO [facility] ICU. dd2 Psych: 19:10 [place] Suicide Severity Screening: PT IS INTUBATED AND UNABLE TO ANSWER THESE dd2 QUESTIONS. PT ADMITTED FOR OVERDOSE. Subjective: PT IS INTUBATED. Objective: PT IS INTUBATED. Interventions: Removed personal items and placed in bag. Searched person for dangerous items. Urine collected and sent for urine drug test. Restraints: Patient placed in soft restraints as ordered by physician. Patient's physical safety, cardiac and respiratory status will continue to be monitored while in restraints. PT IS INTUBATED. Safety Checks: Personal items have not been removed. PT IS MEDICALLY UNSTABLE AND INTUBATED AT THIS TIME. USE OF MONITOR EQUIPMENT AND VENTILATOR. SITTER AT BEDSIDE Door is open. Visitors are present. Patient uses benzodiazepines Patient uses marijuana. Commitment: Patient will be an involuntary commitment. Vital Signs: 17:35 BP 128 / 88; Pulse 103; Resp 14; Temp 99.9(R); Pulse Ox 100% ; aa5 18:00 BP 100 / 83; Pulse 100; Resp 21; Temp 99.9; Pulse Ox 100% on 12 lpm Non-rebreather mask;bp 18:51 BP 93 / 69; Pulse 76; Resp 18 A; Pulse Ox 98% on ETT vent; Weight 62.14 kg (M); kc6 19:00 BP 92 / 73; Pulse 76; Resp 16 A; Pulse Ox 98% on ETT vent; FiO2 100 %; dd2 19:15 BP 97 / 85; Pulse 73; Resp 16 A; Pulse Ox 99% on ETT vent; FiO2 100 %; dd2 19:30 BP 97 / 85; Pulse 73; Resp 16 A; Pulse Ox 99% on ETT vent; FiO2 100 %; dd2 19:45 BP 116 / 86; Pulse 86; Resp 21 (PT COUGHING AND FIGHTING VENT); Pulse Ox 100% on ETT dd2 vent; FiO2 100 %; 20:00 BP 101 / 80; Pulse 76; Resp 20 A; Pulse Ox 100% on ETT vent; FiO2 100 %; dd2 20:15 BP 140 / 98; Pulse 95; Resp 20 (PT COUGHING AND AGITATED); Pulse Ox 99% on ETT vent; dd2 FiO2 100 %; 20:30 BP 97 / 70; Pulse 73; Resp 16 A; Pulse Ox 100% on ETT vent; FiO2 100 %; dd2 20:45 BP 92 / 71; Pulse 73; Resp 16 A; Pulse Ox 100% on ETT vent; FiO2 100 %; dd2 21:00 BP 92 / 78; Pulse 72; Resp 16 A; Temp 97.8(TE); Pulse Ox 100% on ETT vent; FiO2 100 %; dd2 Dejon Coma Score: 19:10 Eye Response: none(1). Modifying Factors: Intubated. Motor Response: none(1). Verbal dd2 Response: none(1). Total: 3. ED Course: 17:20 Patient arrived in ED. eb 17:20 Dakotah Rodriguez MD is Attending Physician. rn 17:21 Nestor Boucher, OFELIA is Primary Nurse. bp 17:36 Humphrey cath inserted, using sterile technique, 18 Fr., by draughtsman, balloon inflated, to kc6 gravity drainage, clamped. urine specimen collected. 17:36 Patient has correct armband on for positive identification. Placed in gown. Bed in low kc6 position. Call light in reach. Side rails up X2. library monitor on. Pulse ox on. NIBP on. Door closed. Noise minimized. Lights dimmed. Warm blanket given. Pillow given. 17:37 Triage completed. bp 17:37 Arm band placed on. bp 17:39 Initial lab(s) drawn, by ED staff, sent to lab. Inserted saline lock: 18 gauge in left bp antecubital area, using aseptic technique. Blood collected. Flushed with 10 mL NS. 18:14 Assisted provider with intubation using 7.5 mm ETT via oral route. ET tube secured at kc6 23cm at the lips. Set up intubation tray. Intubated by Dakotah Rodriguez MD Placement verified by CO2 detector w/ + color change, auscultating bilateral breath sounds, End-tidal CO2 montioring CXR, Patient tolerated well. OFELIA Jesus at bedside. 18:20 NGT: inserted 16 Fr. via left nare. verified placement of air over stomach, verified kc6 return of gastric contents, Placement verified by X-ray, to intermittent suction. Returned gastric contents. Patient tolerated well. 18:55 Reg Briscoe MD is Hospitalizing Provider. rn 19:00 One-on-one care X 180 minutes. kb3 19:03 Chest Single View XRAY In Process Unspecified. EDMS 19:13 O2 via INTUBATED. Assist ventilation with ventilator. dd2 19:42 Attending Physician role handed off by Dakotah Rodriguez MD sp4 19:42 Luis Miguel Pickard MD is Attending Physician. sp4 22:34 EKG done, by ED staff, reviewed by Luis Miguel Pickard MD. dd2 01/31 01:09 Patient admitted, IV remains in place. ha1 Restraints: 01/30 17:30 Non-Violent Restraint: Initial order obtained. January 30, 2025 at 17:30 Staff present on bp initiation: AKSHAT WOLFF. TERENCE RN, ARACELI RN, ELMER RN. Indications for initiating restraints: Actions/Behavior observed: repeated attempts to remove artificial airway/mechanical respiration support, repeated attempts to remove/tamper with lines/tubes/IV med devices \\T\\ wound dressing, Confused/disoriented, has difficulty remembering/follow instructions, has impaired decision making, has decreased level of consciousness, unable to follow instructions, Less restrictive alternatives attempted: family at bedside, reoriented to location, decrease environmental stimuli, Alternative interventions: Ineffective. Clinical justification for use: line protection, patient safety, Restraint Status: Soft wrist restraint (Right) started Soft wrist restraint (Left) started Soft ankle restraint (Right) started Soft ankle restraint (Left) started Family notification/education Education Performed: Unable to provide education regarding restraints due to NO FAMILY PRESENT, PT ALTERED Circulation: Warm/dry, capillary refill WNL. Skin integrity: Intact, healthy with good turgor. Signs of injury related to restraint: No injuries noted. Level of distress \\T\\ agitation: agitated/restless, confused, Hydration/Food: NPO Elimination/Hygiene: with urinary catheter, Observed behaviors: Attempting to tamper with airway/lines/wounds. unable to follow instructions. confused/disoriented. repeated attempts get out of bed/chair. Less restrictive alternatives attempted: Reorient patient. Decrease environmental stimuli. Alt interventions: Ineffective, Clinical justification for continued use Line protection. patient safety. Criteria to discontinue restraint not met. Restraint status: Soft wrist restraint (Right) Continued. Soft wrist restraint (Left) Continued. Soft ankle restraint (Right) Continued. Soft ankle restraint (Left) Continued. 19:10 Non-Violent Restraint: Circulation: Warm/dry, capillary refill WNL. Skin integrity: dd2 Intact, healthy with good turgor. Signs of injury related to restraint: No injuries noted. Hydration/Food: PT INTUBATED AT THIS TIME, NO SEDATION Elimination/Hygiene: with urinary catheter, Observed behaviors: other PT INTUBATED, NO SEDATION NOTED. Less restrictive alternatives attempted: Family at bedside. Decrease environmental stimuli. cover lines/tubes/wounds. Alt interventions: Ineffective, Clinical justification for continued use Airway protection. Line protection. patient safety. Criteria to discontinue restraint not met. Restraint status: Soft wrist restraint (Right) Continued. Soft wrist restraint (Left) Continued. Soft ankle restraint (Right) Continued. Soft ankle restraint (Left) Continued. Cognition: Unable to assess: PT IS INTUBATED AT THIS TIME Assuming responsibility of patient is restraints. Report received from: OFELIA CHARLES. Time restraints initiated: January 30, 2025 at 17:30 Circumstances for use: Safety of staff. Safety of patient. Airway protection. Line protection Current patient physical, emotional \\T\\ behavioral status: INTUBATED, NO SEDATION AT THIS TIME. 21:01 Non-Violent Restraint: Observed behaviors: Intubated/sedated. Less restrictive dd2 alternatives attempted: Family at bedside. Decrease environmental stimuli. Medicated for pain/anxiety. cover lines/tubes/wounds. other PT IS INTUBATED AND ON SEDATION AT THIS TIME Alt interventions: Effective. Criteria to discontinue restraint met:Patient no longer exhibits self injurious behaviors. Restraint status: Other RESTRAINTS D/C Restraint Discontinued on January 30, 2025 at 21:01 Release criteria met. No longer exhibiting violent or self destructive behavior. Alt interventions effective. decreased environmental stimuli, 1:1 patient care, family at bedside, medicated for pain/anxiety, placed on bed alarm, lines/tubes covered, PT IS INTUBATED AND ON SEDATION AT THIS TIME. Soft wrist restraint (Right) discontinued. Soft wrist restraint (Left) discontinued. Soft ankle restraint (Right) discontinued. Soft ankle restraint (Left) discontinued. Administered Medications: 17:34 Drug: Naloxone IVP 2 mg IVP once Route: IVP; Site: left antecubital; bp 18:20 Follow up: Response: No adverse reaction; No change in condition bp 17:34 Drug: D50W IVP 50 ml IVP once; (1 amp) Route: IVP; Site: left antecubital; bp 18:20 Follow up: Response: No adverse reaction bp 18:14 Drug: Etomidate IVP 20 mg IVP once {Note: VERBAL WITH [id number] FROM DR. RODRIGUEZ.} kc6 Route: IVP; Site: left antecubital; 18:56 Follow up: Response: No adverse reaction; RASS: Deep sedation (-4) kc6 18:14 Drug: Succinylcholine IVP 100 mg IVP once {Note: VERBAL WITH READ BACK FROM DR. RODRIGUEZ.} kc6 Route: IVP; Site: left antecubital; 18:56 Follow up: Response: No adverse reaction kc6 19:59 Drug: Midazolam IVP or IV 5 mg IVP once Route: IVP; Site: left hand; dd2 21:00 Follow up: Response: No adverse reaction ha1 20:00 Drug: NS 0.9% IV 1000 ml IV at 1000 ml once; to be given as a bolus over 60 minutes dd2 Route: IV; Rate: 1000 ml; Site: left hand; 20:15 Follow up: IV Status: Completed infusion dd2 20:00 Drug: Rocephin IV 1 grams IV at calculated rate once; Given slow IV push per pharmacy dd2 instructions Route: IV; Rate: calculated rate; Site: left hand; 20:20 Follow up: IV Status: Completed infusion; IV Intake: 50ml dd2 20:00 Drug: NS 0.9% IV 1000 ml IV at 1000 ml once; to be given as a bolus over 60 minutes dd2 Route: IV; Rate: 1000 ml; Site: left hand; 21:10 Follow up: IV Status: Completed infusion; IV Intake: 1000ml dd2 21:15 Follow up: IV Status: Completed infusion; IV Intake: 1000ml dd2 20:27 Not Given (10 mg not availablee): midazolamor iv 10 mg IVP once dd2 20:27 Drug: Ketamine IVP 100 mg IVP once Route: IVP; Site: right hand; dd2 20:42 Follow up: Response: No adverse reaction dd2 20:27 Drug: Midazolam IVP or IV 5 mg IVP once Route: IVP; Site: right hand; dd2 20:42 Follow up: Response: No adverse reaction dd2 20:32 Drug: D5-NS IV 1000 ml IV at 125 ml/hr continuous Route: IV; Rate: 125 ml/hr; Site: dd2 right hand; 23:48 Follow up: IV Status: Infusion continued upon transfer dd2 01/31 00:01 Drug: Ketamine IVP 50 mg IVP once Route: IVP; Site: left antecubital; dd2 00:16 Follow up: Response: No adverse reaction dd2 Medication: 01/30 21:40 VIS not applicable for this client. dd2 Intake: 20:20 IV: 50ml; Total: 50ml. dd2 21:10 IV: 1000ml; Total: 1050ml. dd2 21:15 IV: 1000ml; Total: 2050ml. dd2 Ventilator: 19:10 Fi02: 100%; Rate: 16min; T.V.: 450ml; Peep: 5cm; dd2 Outcome: 18:56 Decision to Hospitalize by Provider. rn 01/31 01:08 Admitted to ICU accompanied by nurse, accompanied by tech, via stretcher, room 7, with ha1 oxygen, on monitor, with chart, critical Instructed on the need for admit, Demonstrated understanding of instructions, 01:10 Patient left the ED. ha1 Signatures: Dispatcher [employer] EDMS Dakotah Rodriguez MD MD rn Calderon, Audri, RN RN aa5 Nestor Boucher RN RN Tessie Li Heidy, RN RN ha1 Araceli Burgess, RN RN [email or web address] Hattie Ward, RN Luis Miguel Contreras MD MD sp4 JUDIT SHORT RN RN dd2 Corrections: (The following items were deleted from the chart) 01/30 17:29 17:27 Family history: not pertinent, rn rn 17:29 17:27 Hospitalizations: No recent hospitalization is reported. rn rn 17:29 17:27 The history from the nurse's notes was reviewed. rn rn 18:00 17:35 BP 128 / 88; Pulse 103bpm; Resp 24bpm; Pulse Ox 100%; bp aa5 18:52 18:51 BP 93 / 69; Pulse 76bpm; Resp 18bpm; Assisted; Pulse Ox 98% ET / Ventilator; kc6 kc6 19:15 18:14 Assisted provider with intubation using 7.5 mm ETT via oral route. ET tube kc6 secured at 23cm at the lips. Set up intubation tray. Intubated by Dakotah Rodriguez MD Placement verified by CO2 detector w/ + color change, auscultating bilateral breath sounds, End-tidal CO2 montioring CXR, Patient tolerated well. kc6 19:15 17:36 Door closed. Noise minimized. Lights dimmed. Pillow given. kc6 kc6
--- NOTE | 2025-01-30 18:57 | EDPHYS ---
Physician Documentation [facility] Name: Dawna Hopkins Age: 24 yrs Sex: Female : 2000 Arrival Date: 01/30/2025 Time: 17:19 Bed 4 Private MD: ED Physician Luis Miguel Pickard HPI: 01/30 17:27 This 24 yrs old Female presents to ER via Unassigned with complaints of AMS. rn 17:27 The patient presents with decreased responsiveness. Onset: The symptoms/episode rn began/occurred at an unknown time. It is unknown whether or not the patient has had similar symptoms in the past. EMS reports suspected overdose, was found with empty bottles of benzodiazepines and anxiety medication and another pill that they were not sure what type of class of pill it was. Unknown ingestion time but was found with suicide note. Glucose 60 per EMS and IV not obtained. Administered Narcan prior to arrival, single dose and no response. I believe they gave 1 mg Narcan. Patient opens eyes but not cooperative, is agitated and does not follow commands. 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 bp Historical: - Allergies: 17:37 GABAPENTIN; bp - Home Meds: 18:41 zolpidem 10 mg Oral tablet every day at bedtime [Active]; venlafaxine 37.5 mg oral aa5 Capsule, ER 24 hr daily [Active]; clonazepam 0.5 mg Oral tablet 3 times per day [Active]; lamotrigine 150 mg oral tablet daily [Active]; diazepam 10 mg Oral tablet daily PRN [Active]; trazodone 50 mg Oral tablet every day at bedtime [Active]; Caplyta 42 mg oral capsule daily [Active]; venlafaxine 75 mg oral Tablet, Extended Release 24 hr daily [Active]; ibuprofen 200 mg Oral tablet [Active]; tramadol 50 mg Oral tablet 1-2 tabs every 6hrs PRN [Active]; - PMHx: 17:37 Anxiety; Asthma; Bipolar disorder; Seizure; bp - Immunization history:: Adult Immunizations unknown. - Infectious Disease History:: Denies. - Social history:: Smoking status: unknown. - History obtained from: EMS. ROS: 17:27 Unable to obtain ROS due to altered mental status, rn 04/14 19:32 Unable to obtain ROS due to altered mental status, sp4 Exam: 01/30 17:27 Constitutional: This is a well developed, well nourished patient who is somnolent and rn minimal response to painful stimuli Head/Face: Normocephalic, atraumatic. Eyes: Pupils equal round and reactive to light, extra-ocular motions intact. Cardiovascular: Regular rate and rhythm. No pulse deficits. Respiratory: No increased work of breathing, no retractions or nasal flaring. Abdomen/GI: Soft, non-tender MS/ Extremity: Pulses equal, no cyanosis. Neurovascular intact. Full, normal range of motion. Equal circumference. Neuro: Somnolent, moving all 4 extremities, not following commands, minimal response to painful stimuli 19:21 ECG was reviewed by the Attending Physician. rn Vital Signs: 17:35 BP 128 / 88; Pulse 103; Resp 14; Temp 99.9(R); Pulse Ox 100% ; aa5 18:00 BP 100 / 83; Pulse 100; Resp 21; Temp 99.9; Pulse Ox 100% on 12 lpm Non-rebreather mask;bp 18:51 BP 93 / 69; Pulse 76; Resp 18 A; Pulse Ox 98% on ETT vent; Weight 62.14 kg (M); kc6 19:00 BP 92 / 73; Pulse 76; Resp 16 A; Pulse Ox 98% on ETT vent; FiO2 100 %; dd2 19:15 BP 97 / 85; Pulse 73; Resp 16 A; Pulse Ox 99% on ETT vent; FiO2 100 %; dd2 19:30 BP 97 / 85; Pulse 73; Resp 16 A; Pulse Ox 99% on ETT vent; FiO2 100 %; dd2 19:45 BP 116 / 86; Pulse 86; Resp 21 (PT COUGHING AND FIGHTING VENT); Pulse Ox 100% on ETT dd2 vent; FiO2 100 %; 20:00 BP 101 / 80; Pulse 76; Resp 20 A; Pulse Ox 100% on ETT vent; FiO2 100 %; dd2 20:15 BP 140 / 98; Pulse 95; Resp 20 (PT COUGHING AND AGITATED); Pulse Ox 99% on ETT vent; dd2 FiO2 100 %; 20:30 BP 97 / 70; Pulse 73; Resp 16 A; Pulse Ox 100% on ETT vent; FiO2 100 %; dd2 20:45 BP 92 / 71; Pulse 73; Resp 16 A; Pulse Ox 100% on ETT vent; FiO2 100 %; dd2 21:00 BP 92 / 78; Pulse 72; Resp 16 A; Temp 97.8(TE); Pulse Ox 100% on ETT vent; FiO2 100 %; dd2 [place] Coma Score: 19:10 Eye Response: none(1). Modifying Factors: Intubated. Motor Response: none(1). Verbal dd2 Response: none(1). Total: 3. Ventilator: 19:10 Fi02: 100%; Rate: 16min; T.V.: 450ml; Peep: 5cm; dd2 Procedures: 18:19 Intubation: Ventilated with 100% NRB prior to procedure. O2 saturation prior to marketing intern was 97 %. Intubated orally using # 3 Lila blade with 7.5 mm ETT. was successful on first attempt. Cricoid pressure applied during procedure. Tube secured with ETT rivera at right side of mouth measured 23 cm at lip. Placement verified by CXR, CO2 detector with (+) color change, auscultating bilateral breath sounds, O2 saturation after procedure was 98 %. Patient tolerated well, Intubated using glide scope, single pass intubation and tube visualized passing through cords. MDM: 17:20 Medical Screening Exam initiated rn 17:34 ED course: Spoke with her mother on the phone, she recalls that she usually takes rn Motrin's/narcotic pain medicine/Ativan and mood stabilizer as well as trazodone, last seen normal last night and possible ingestion anywhere from midnight to now. Glucoses in the 60s, suggest that she has not eaten in a while, possibly suggests morning ingestion. Trying more Narcan and D50 to see if response. Low threshold for intubation if does not respond.. 18:18 ED course: Patient persistently unresponsive, sonorous respirations without purposeful rn movement. Concern of multiple medication overdose and still unclear exactly which she took. Poison control contacted, gave some recommendations. No evidence of seizures. No response to multiple Narcan or glucose. Flumazenil not used due to multiple pill ingestions not just benzos and patient already with seizure disorder. Concern was to precipitate another seizure. Patient given an hour to respond to multiple treatments and no response. Decision made to intubate for airway protection. All of this was conveyed to mother.. 18:53 Differential Diagnosis: volume depletion, Overdose, suicide attempt, benzo overdose, rn sedative overdose. Data reviewed: vital signs, nurses notes, lab test result(s), EKG, radiologic studies, plain films, and as a result, I will admit patient. Consideration of Admission/Observation Patient was admitted/placed on observation. Escalation of care including admission/observation considered. Counseling: I had a detailed discussion with the patient and/or guardian regarding the historical points, exam findings, and any diagnostic results supporting the discharge/admit diagnosis, lab results, radiology results, the need for further work-up and treatment in the hospital. Response to treatment: the patient's symptoms have mildly improved after treatment, and as a result, I will admit patient. ED course: Poison Control Center contacted, recommend supportive care at this time. There is evidence of rhabdo. Low-grade fever and questionable UTI. Covered with antibiotics. Fluids administered including dextrose containing fluids. Patient is intubated for airway protection. Family updated. Admitted to hospitalist service for further care.. 01/31 19:32 ED course: Patient had to be ordered several doses of Versed and also ketamine to sp4 augment her sedation.. 01/30 17:26 Order name: Acetaminophen; Complete Time: 18:50 rn 01/30 17:26 Order name: Basic Metabolic Panel; Complete Time: 18:50 rn 01/30 17:26 Order name: CBC with Diff; Complete Time: 18:03 rn 01/30 17:26 Order name: ETOH Level; Complete Time: 18:50 01/30 17:26 Order name: Hepatic Function; Complete Time: 18:50 rn 01/30 17:26 Order name: PT-INR; Complete Time: 18:03 rn 01/30 17:26 Order name: Test, Urine; Complete Time: 18:03 rn 01/30 17:26 Order name: Ptt, Activated; Complete Time: 18:03 rn 01/30 17:26 Order name: Salicylate; Complete Time: 18:50 rn 01/30 17:26 Order name: Urinalysis w/ reflexes; Complete Time: 18:03 rn 01/30 17:26 Order name: Urine Drug Screen; Complete Time: 18:50 rn 01/30 17:56 Order name: Magnesium aa5 01/30 17:56 Order name: Valproic Acid (depakote) [facility] 01/30 17:56 Order name: [place]; Complete Time: 18:50 [facility] 01/30 17:56 Order name: Carbamazepine (tegretol) [facility] 01/30 17:58 Order name: CK; Complete Time: 18:50 [facility] 01/30 18:02 Order name: Urine Culture [facility] 01/30 19:27 Order name: CBC with Automated Diff [facility] 01/30 19:27 Order name: Comprehensive Metabolic Panel [facility] 01/30 19:27 Order name: Thyroid Stimulating Hormone [facility] 01/30 22:24 Order name: Salicylate dd2 01/30 23:36 Order name: Salicylates Level [facility] 01/30 18:39 Order name: Chest Single View XRAY [facility] 01/30 17:26 Order name: EKG; Complete Time: 17:27 rn 01/30 19:27 Order name: CONS Physician Consult [facility] 01/30 17:26 Order name: EKG - Nurse/Tech; Complete Time: 18:26 rn 01/30 17:26 Order name: IV Saline Lock; Complete Time: 17:34 rn 01/30 17:26 Order name: Labs collected and sent; Complete Time: 17:34 rn 01/30 17:26 Order name: Suicide Precautions; Complete Time: 17:34 rn 01/30 17:26 Order name: Suicide Screening ([place]); Complete Time: 17:34 rn 01/30 17:53 Order name: Restraint:Non-Violent; Complete Time: 18:20 bp 01/30 22:23 Order name: EKG - Nurse/Tech; Complete Time: 22:34 dd2 EC/13 19:21 Rate is 100 beats/min. Rhythm is regular. QRS [place] is Normal. [place] interval is normal. rn QRS interval is normal. QT interval is prolonged at 487 msec. No Q waves. T waves are Normal. No ST changes noted. Clinical impression: NSR w/ Non-specific ST/T Changes. Interpreted by me. Reviewed by me. Administered Medications: 17:34 Drug: Naloxone IVP 2 mg IVP once Route: IVP; Site: left antecubital; bp 18:20 Follow up: Response: No adverse reaction; No change in condition bp 17:34 Drug: D50W IVP 50 ml IVP once; (1 amp) Route: IVP; Site: left antecubital; bp 18:20 Follow up: Response: No adverse reaction bp 18:14 Drug: Etomidate IVP 20 mg IVP once {Note: VERBAL WITH [id number] FROM DR. RODRIGUEZ.} kc6 Route: IVP; Site: left antecubital; 18:56 Follow up: Response: No adverse reaction; RASS: Deep sedation (-4) kc6 18:14 Drug: Succinylcholine IVP 100 mg IVP once {Note: VERBAL WITH READ BACK FROM DR. RODRIGUEZ.} kc6 Route: IVP; Site: left antecubital; 18:56 Follow up: Response: No adverse reaction kc6 19:59 Drug: Midazolam IVP or IV 5 mg IVP once Route: IVP; Site: left hand; dd2 21:00 Follow up: Response: No adverse reaction ha1 20:00 Drug: NS 0.9% IV 1000 ml IV at 1000 ml once; to be given as a bolus over 60 minutes dd2 Route: IV; Rate: 1000 ml; Site: left hand; 20:15 Follow up: IV Status: Completed infusion dd2 20:00 Drug: Rocephin IV 1 grams IV at calculated rate once; Given slow IV push per pharmacy dd2 instructions Route: IV; Rate: calculated rate; Site: left hand; 20:20 Follow up: IV Status: Completed infusion; IV Intake: 50ml dd2 20:00 Drug: NS 0.9% IV 1000 ml IV at 1000 ml once; to be given as a bolus over 60 minutes dd2 Route: IV; Rate: 1000 ml; Site: left hand; 21:10 Follow up: IV Status: Completed infusion; IV Intake: 1000ml dd2 21:15 Follow up: IV Status: Completed infusion; IV Intake: 1000ml dd2 20:27 Not Given (10 mg not availablee): midazolamor iv 10 mg IVP once dd2 20:27 Drug: Ketamine IVP 100 mg IVP once Route: IVP; Site: right hand; dd2 20:42 Follow up: Response: No adverse reaction dd2 20:27 Drug: Midazolam IVP or IV 5 mg IVP once Route: IVP; Site: right hand; dd2 20:42 Follow up: Response: No adverse reaction dd2 20:32 Drug: D5-NS IV 1000 ml IV at 125 ml/hr continuous Route: IV; Rate: 125 ml/hr; Site: dd2 right hand; 23:48 Follow up: IV Status: Infusion continued upon transfer dd2 01/31 00:01 Drug: Ketamine IVP 50 mg IVP once Route: IVP; Site: left antecubital; dd2 00:16 Follow up: Response: No adverse reaction dd2 Disposition: 01/30 18:53 Critical Care:. rn Disposition Summary: 01/30/25 18:56 Hospitalization Ordered Notes: Hospitalization Status: Inpatient Admission rn Provider: Reg Briscoe rn Location: Intensive Care Unit rn Condition: Fair rn Problem: new rn Symptoms: have improved rn Bed/Room Type: Standard rn Room Assignment: 7-(01/30/25 23:03) vk Diagnosis - Intentional overdose rn - Altered mental status, unspecified rn - Rhabdomyolysis rn Forms: - Medication Reconciliation Form rn - SBAR form rn - Leadership Thank You Letter pattern puncher time excluding procedures: 18:53 Critical care time: Bedside Care: 30 minutes, Consultation: 5 minutes, Family rn Intervention: 5 minutes. Total time: 40 minutes Signatures: Dispatcher [employer] EDMS Dakotah Rodriguez MD MD rn Calderon, Audri, RN RN aa5 Nestor Boucher, RN RN Grace Lawrence RN RN kc6 Luis Miguel Pickard MD MD sp4 Neena Ziegler DIANA, RN RN dd2 Yumiko Sommer RN ha1 Corrections: (The following items were deleted from the chart) 17:27 17:27 ACETAMINOPHEN+C.LAB.BRZ ordered. EDMS EDMS 17:27 17:27 BASIC METABOLIC PANEL+C.LAB.BRZ ordered. EDMS EDMS 17: 17:27 CBC+H.LAB.BRZ ordered. EDMS EDMS 17: 17:27 ETHANOL+C.LAB.BRZ ordered. EDMS EDMS 17:27 17:27 HEPATIC FUNCTION+C.LAB.BRZ ordered. EDMS EDMS 17: 17:27 PROTIME (+INR)+COAG.LAB.BRZ ordered. EDMS EDMS 17: 17:27 Test, Urine+UC.LAB.BRZ ordered. EDMS EDMS 17: 17:27 PTT, ACTIVATED+COAG.LAB.BRZ ordered. EDMS EDMS 17: 17:27 SALICYLATE+C.LAB.BRZ ordered. EDMS EDMS 17:27 Urinalysis+U.LAB.BRZ ordered. EDMS EDMS 17:27 URINE DRUG SCREEN+UC.LAB.BRZ ordered. EDMS EDMS 17: 17:27 Family history: not pertinent, jaspreet vogel 17 17:27 Hospitalizations: No recent hospitalization is reported. jaspreet vogel 17:27 The history from the nurse's notes was reviewed. jaspreet vogel 17:56 17:56 MAGNESIUM+C.LAB.BRZ ordered. EDMS EDMS 23:03 18:56 rn jil
[2025-01-30 19:00] LABS: Valproic Acid (Depakene) Level < 3.0 mcg/mL (50.0-100.0)
[2025-01-30] MEDS ORDERED: NA CHLORIDE 0.9% 2,000 ML ONE (19:16)
[2025-01-30] MEDS ORDERED: NA CHLORIDE 0.9% 50 ML ONE (19:16)
[2025-01-30] MEDS ORDERED: CEFTRIAXONE 1000 MG/VIAL ONE (19:16)
[2025-01-30] MEDS ORDERED: D5 0.9 NS 1,000 ML IV ONE (19:16)
[2025-01-30] MEDS ORDERED: ACETAMINOPHEN 650MG/RECT SUPP PR PRN (19:18)
[2025-01-30] MEDS ORDERED: ONDANSETRON 4 MG/2 ML VIAL IV PRN (19:18)
--- NOTE | 2025-01-30 19:26 | P.HP ---
Patient History Date of Service: 01/31/25 Reason for admission: Overdose History of Present Illness: 24-year-old with a past medical history of manic bipolar, depression/anxiety, presenting after a suicide attempt with intentional ingestion of most of her medication. The last time she was seen normal was last night. Per chart review her mother states she thinks she took the pills this morning. History is relayed by her twin sister who is at bedside. She states that her mom found her after taking all of her pills. Her pill bottle include Klonopin, Lamictal, venlafaxine, Ambien. Her sister states she has a lot of mental health issues in addition to high cholesterol. She was recently diagnosed with HPV. Allergies No Known Allergies Allergy (Unverified 01/30/25 19:45) Review of Systems is unable to be obtained Physical Examination - Vital Signs Pulse: 98 Pulse Ox (%): 99 - Physical Exam General: Other (Intubated and sedated) HEENT: Normocephalic Neck: Supple Respiratory: Clear to auscultation bilaterally Cardiovascular: No edema Capillary refill: <2 Seconds Gastrointestinal: Normal bowel sounds Musculoskeletal: No clubbing Integumentary: No rashes Neurological: Normal reflexes 2+ Lymphatics: No axilla or inguinal lymphadenopathy - Studies Laboratory Data (last 24 hrs) 01/30/25 01/30/25 01/30/25 17:39 17:39 17:39 WBC 18.30 H Hgb 15.8 H Hct 44.7 Plt Count 335 PT 11.3 INR 0.99 APTT 24.9 L Sodium Potassium BUN Creatinine Glucose Magnesium 2.0 Total Bilirubin AST ALT Alkaline Phosphatase 01/30/25 17:39 WBC Hgb Hct Plt Count PT INR APTT Sodium 137 Potassium 3.8 BUN 9 Creatinine 1.12 H Glucose 121 H Magnesium Total Bilirubin 0.5 AST 44 H ALT 23 Alkaline Phosphatase 47 Assessment and Plan - Plan Overdose Suicide attempt Leukocytosis Abnormal urinalysis Manic bipolar disorder Depression and anxiety Hyperlipidemia Elevated creatinine Admit to ICU Currently intubated and sedated Supportive care as per poison control recommendation Wean vent as able Continue IV Rocephin Continue IV fluid Obtain lipid panel Abnormal UA and urine culture pending UDS with THC and benzodiazepine DVT prophylaxis with Lovenox - Advance Directives Does patient have a Living Will: No Does patient have a Durable POA for Healthcare: No
[2025-01-30] MEDS ORDERED: MIDAZOLAM HCL 5 ML ONE ×2 (19:44→20:21)
--- NOTE | 2025-01-30 19:44 | RAD REPORT ---
EXAMINATION: ONE VIEW CHEST XR CLINICAL INDICATION: Female, 24 years old.,ET tube confirmation and NG tube confirmation TECHNIQUE: Frontal chest projection is submitted. Examination is limited by patient positioning and t echnique. COMPARISON: 02/12/2011 FINDINGS: Endotracheal tube directed towards the right main bronchus ostium, and was subsequently retracted, te rminating 3.7 cm above the benja.. Enteric tube courses towards the body of the stomach. The lungs are well inflated and clear. No pneumothorax or sizable effusion. The heart is normal in size. Media stinal contours are unremarkable. IMPRESSION: Endotracheal and enteric tubes in satisfactory position. No acute intrathoracic abnormalities.
[2025-01-30 20:05] VITALS: BMI 24.1
[2025-01-30] MEDS: NA CHLORIDE 0.9% 100 ML ONE (20:05)
[2025-01-30] MEDS: DEXMEDETOMIDINE HCL 200 MCG/2 ML VIAL ONE (20:05)
[2025-01-30] MEDS ORDERED: KETAMINE HCL IN 0.9 % NACL 50 MG/5 ML SYRINGE IV ONE ×2 (20:21→23:55)
[2025-01-31] MEDS: DEXMEDETOMIDINE HCL 200 MCG in NA CHLORIDE 0.9% 98 ML IV SCH (01:15)
[2025-01-31] MEDS: NA CHLORIDE 0.9% 1,000 ML IV SCH (02:01)
[2025-01-31] MEDS: MIDAZOLAM HCL 2 MG/2 ML INJ ONE ×3 (04:25→21:20)
[2025-01-31] MEDS: MIDAZOLAM HCL 2 MG/2 ML INJ IV ONE ×2 (04:27→21:19)
[2025-01-31 05:26] LABS: Absolute Lymphocytes (CBC) 2.5 K/uL (0.7-4.9); Absolute Monocytes 0.9 K/uL (0.1-1.3); Absolute Neutrophil 9.1 K/uL (1.8-8.0); Basophils % 0.1 % (0-1.3); Hematocrit 37.5 % (36.0-45.0); Hemoglobin 13.2 g/dL (12.0-15.0); Lymphocytes % 20.2 % (15.3-44.8); MCH 32.1 pg (27.0-35.0); MCHC 35.2 g/dL (32.0-36.0); MCV 91.2 fL (80-100); MPV 7.3 fL (7.6-11.3); Neutrophils % 72.7 % (41.7-73.7); Platelets 242 thou/uL (152-406); RBC Red Blood Cell Count 4.11 M/uL (3.86-4.86); Red Cell Distribution Width 12.3 % (12.1-15.2)
[2025-01-31 05:51] LABS: Albumin 3.3 g/dL (3.4-5.0); Albumin/Globulin Ratio 1.2 (1.1-1.8); Anion Gap 10.5 mEq/L (5.0-15.0); Bilirubin Total 0.8 mg/dL (0.2-1.0); Globulin 2.7 g/dL (2.3-3.5); Magnesium 1.8 mg/dL (1.6-2.4); Potassium 3.5 mEq/L (3.5-5.1); Thyroid Stimulating Hormone 1.09 uIU/mL (0.358-3.740)
[2025-01-31] MEDS: CEFTRIAXONE 1,000 MG in NA CHLORIDE 0.9% 50 ML IVPB SCH (06:15)
[2025-01-31] MEDS: KCL 20 MEQ/100 mL IVPB 20 MEQ/100 ML BAG IV SCH (07:00)
--- NOTE | 2025-01-31 07:09 | P.PN ---
Date of Service: 01/31/25 Subjective: intubated in ED for airway protection family updated at bedside moving all extremities spontaneously, not following commands low grade temps overnight Physical Exam: GEN: on vent, moving extremities CV: Regular rate and rhythm, no edema Pulm: on mechanical vent, clear bilaterally ABD: soft, nontender, nondistended Humphrey placed in ED Problem List: Drug overdose Suicide attempt Elevated CPK Manic Bipolar disorder Depression/Anxiety Hyperlipidemia Hx seizure disorder on admisison, presents to ED after ingesting unknown amount of Benzos, anxiety medication, other medications in reported suicide attempt. Patient found unresponsive on floor by family after unknown amount of time. Poison control contacted in ED. Tox screen positive for Benzos and THC. 01/30 - Minimal-No response to narcan / glucose in ED. Intubated for airway protection in ED and admitted to ICU wean vent as tolerated CPK elevated (1988), +leukocytosis UA questionable, Follow urine cx Pulm consult 01/31 - remains on vent continue vent for now, not following commands; risk to self / harm Continue empiric rocephin low grade temps overnight, leukocytosis improving continue IV Fluids Trend CPK consult psych if available VTE: Lovenox Code: Full Continue ICU level of care wean vent, sedation Time Spent Managing Pts Care (In Minutes): 55
[2025-01-31] MEDS: DEXMEDETOMIDINE HCL 1,000 MCG in NA CHLORIDE 0.9% 490 ML IV SCH (07:17)
[2025-01-31] MEDS: FENTANYL CITR 100 MCG/2 ML IV PRN (08:09)
[2025-01-31] MEDS: ENOXAPARIN 40 MG/0.4 ML SQ SCH (08:09)
[2025-01-31] MEDS: MAGNESIUM SULFATE 1 gm IVPB 1 GM/100 ML BAG IV ONE (08:09)
[2025-01-31] MEDS ORDERED: CEFTRIAXONE 1,000 MG in NA CHLORIDE 0.9% 50 ML IVPB SCH (09:00)
--- NOTE | 2025-01-31 10:48 | EKG ---
Test Date: 2025-01-30 Test Time: 17:49:17 Incubator Machine Operator: ADEN MEASUREMENT RESULTS: Intervals: Rate: 100 VT: 116 QRSD: 108 QT: 378 QTc: 487 [place]: P: 60 VT: 116 QRS: -1 T: 48 INTERPRETIVE STATEMENTS: Normal sinus rhythm Prolonged QT Abnormal ECG Compared to ECG 03/02/2019 00:27:39 Prolonged QT interval now present Electronically Signed On 01-31-25 10:47:03 CDT by Deep Bob
--- NOTE | 2025-01-31 11:46 | P.CNS ---
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 has been experiencing some stressful events history of bipolar disorder took a bunch of pills and found unresponsive ended up here in the emergency room was intubated recently diagnosed with an HPV infection last suicidal attempt was the age of 15 Allergies No Known Allergies Allergy (Unverified 01/30/25 19:45) Home Medications: Lamotrigine [Lamictal] 150 mg PO DAILY 01/31/25 Lumateperone Tosylate [Caplyta] 42 mg PO DAILY 01/31/25 Tramadol HCl [Ultram] 50 mg PO Q6HP PRN 01/31/25 Trazodone [Desyrel] 50 mg PO BEDTIME 01/31/25 Venlafaxine HCl [Venlafaxine HCl ER] 37.5 mg PO DAILY 01/31/25 Venlafaxine HCl [Venlafaxine HCl ER] 75 mg PO DAILY 01/31/25 Zolpidem Tartrate 10 mg PO BEDTIME PRN PRN 01/31/25 clonazePAM [Clonazepam] 0.5 mg PO TIDP PRN 01/31/25 diazePAM [Diazepam] 10 mg PO DAILYPRN PRN 01/31/25 - Past Medical/Surgical History Diabetic: No -: Anxiety -: Bipolar d/o -: Asthma as a child -: anxiety tremors -: High cholesterol -: recent uterine Bx - Family History Mother Medical History: Hypertension - Social History Smoking Status: Unknown if ever smoked Alcohol use: Yes CD- Drugs: Yes Caffeine use: Yes Place of Residence: Home Review of Systems is unable to be obtained Physical Examination Temp Pulse Resp BP Pulse Ox 97.6 F 89 15 104/79 100 01/31/25 08:00 01/31/25 11:00 01/31/25 11:00 01/31/25 11:00 01/31/25 11:00 General: Delirious Neck: Supple Respiratory: Clear to auscultation bilaterally Cardiovascular: No edema, Regular rate/rhythm Gastrointestinal: Normal bowel sounds, Soft and benign Laboratory Data (last 24 hrs) 01/30/25 01/30/25 01/30/25 17:39 17:39 17:39 WBC 18.30 H Hgb 15.8 H Hct 44.7 Plt Count 335 PT 11.3 INR 0.99 APTT 24.9 L Sodium Potassium BUN Creatinine Glucose Magnesium 2.0 Total Bilirubin AST ALT Alkaline Phosphatase 01/30/25 17:39 WBC Hgb Hct Plt Count PT INR APTT Sodium 137 Potassium 3.8 BUN 9 Creatinine 1.12 H Glucose 121 H Magnesium Total Bilirubin 0.5 AST 44 H ALT 23 Alkaline Phosphatase 47 - Problems (1) Respiratory failure Current Visit: Yes Status: Acute Plan: Patient is 24 years of age admitted with an overdose of psychiatric medication she does take Klonopin at home history of bipolar disorder patient's chest x-ray is clear white count is elevated continue to wean off patient from the ventilator patient is on Precedex psych evaluation Qualifiers: Chronicity: acute
[2025-01-31] MEDS ORDERED: SUCCINYLCHOLINE 20 MG/ML (10 ML) IV ONE (11:51)
[2025-01-31] MEDS: NA CHLORIDE 0.9% 100 ML ONE (15:28)
[2025-01-31] MEDS: LORazepam 2 MG/ML VIAL IV PRN (19:45)
[2025-01-31] MEDS: KCL 20 MEQ/100 mL IVPB 20 MEQ/100 ML BAG IV ONE (19:54)
[2025-01-31] MEDS: LORazepam 2 MG/ML VIAL ONE (21:00)
[2025-01-31] MEDS: DIPHENHYDRAMINE 50 MG/ML VIAL IV ONE (22:35)
[2025-01-31] MEDS: DIPHENHYDRAMINE 50 MG/ML VIAL ONE (22:37)
[2025-01-31] MEDS: HALOPERIDOL LACT 5 MG/ML INJ ONE (22:39)
[2025-01-31] MEDS: HALOPERIDOL LACT 5 MG/ML INJ IV ONE (22:52)
[2025-02-01] MEDS: HALOPERIDOL LACT 5 MG/ML INJ ONE (00:48)
[2025-02-01] MEDS: HALOPERIDOL LACT 5 MG/ML INJ IV PRN (00:52)
[2025-02-01 07:19] LABS: Absolute Monocytes 0.7 K/uL (0.1-1.3); Absolute Neutrophil 10.3 K/uL (1.8-8.0); Basophils % 0.2 % (0-1.3); Hematocrit 36.3 % (36.0-45.0); Hemoglobin 12.5 g/dL (12.0-15.0); Lymphocytes % 15.4 % (15.3-44.8); MCH 31.9 pg (27.0-35.0); MCHC 34.5 g/dL (32.0-36.0); MCV 92.5 fL (80-100); MPV 7.3 fL (7.6-11.3); Monocytes % 5.4 % (3.3-12.3); Nucleated Red Blood Cells % 0.1 % (0-0); Platelets 221 thou/uL (152-406); RBC Red Blood Cell Count 3.92 M/uL (3.86-4.86); Red Cell Distribution Width 11.9 % (12.1-15.2)
[2025-02-01 07:35] LABS: Albumin 3.8 g/dL (3.4-5.0); Albumin/Globulin Ratio 1.2 (1.1-1.8); Anion Gap 11.4 mEq/L (5.0-15.0); Bilirubin Total 0.7 mg/dL (0.2-1.0); Globulin 3.1 g/dL (2.3-3.5); Potassium 3.4 mEq/L (3.5-5.1); Protein, Total 6.9 g/dL (6.4-8.2)
--- NOTE | 2025-02-01 07:37 | RAD REPORT ---
Procedure: Chest Single View HISTORY: Cough COMPARISON: January 30, 2025 FINDINGS: An endotracheal tube is not visualized and presumably has been removed. Nasogastric tube enters the stomach Development of right upper lobe atelectasis. No significant change IMPRESSION: Development of of right upper lobe atelectasis
[2025-02-01] MEDS: KCL 20 MEQ/100 mL IVPB 20 MEQ/100 ML BAG IV SCH ×3 (08:44→20:17)
[2025-02-01] MEDS: D5 0.9 NS 1,000 ML IV SCH (10:28)
[2025-02-01] MEDS ORDERED: VITAL AF 1,000 ML BOT RTH SCH (11:00)
[2025-02-01] MEDS: NA CHLORIDE 0.9% 1,000 ML IV SCH (12:33)
--- NOTE | 2025-02-01 13:16 | P.PN ---
Subjective Date of Service: 02/01/25 Chief Complaint: Overdose Patient remain unresponsive on sedation with Precedex. Nursing staff reports she was previously agitated. No recorded fever. No witnessed seizures. Patient was extubated yesterday. Physical Examination - Vital Signs Temperature: 97.5 F Blood Pressure: 111/84 Pulse: 75 Respirations: 20 Pulse Ox (%): 98 Assessment And Plan - Plan Physical Exam: GEN: Unresponsive on sedation, not agitated CV: Regular rate and rhythm, no edema Pulm: clear bilaterally, adequate breath sounds bilaterally. ABD: soft, nontender, nondistended Urogenital: Humphrey catheter in place Problem List: Drug overdose Suicide attempt Elevated CPK Manic Bipolar disorder Depression/Anxiety Hyperlipidemia Hx seizure disorder Rhabdomyolysis Reported overdose with Benzos-diazepam and Klonopin, anxiety medication, other medications in reported suicide attempt. Patient found unresponsive on floor by family after unknown amount of time. Poison control contacted in ED. Tox screen positive for Benzos and THC. According to family patient left a note indicating suicidal intent. Second attempt per mother. 01/30 - Minimal-No response to narcan / glucose in ED. Intubated for airway protection in ED and admitted to ICU wean vent as tolerated CPK elevated (1988), +leukocytosis UA questionable, Follow urine cx Pulm consult 01/31 - remains on vent continue vent for now, not following commands; risk to self / harm Continue empiric rocephin low grade temps overnight, leukocytosis improving continue IV Fluids Trend CPK consult psych if available 02/01 Aggressive IV hydration for rhabdomyolysis Start NG tube feeding Monitor CK levels daily Continue to hold home psychotropic medications. Neurochecks Daily sedation vacation. Psychiatry consult. Patient is on suicide watch VTE: Lovenox Code: Full Continue ICU level of care
--- NOTE | 2025-02-01 15:39 | RAD REPORT ---
EXAMINATION: ONE VIEW CHEST XR CLINICAL INDICATION: tachypnea TECHNIQUE: Frontal chest projection is submitted. Examination is limited by patient positioning and t echnique. COMPARISON: 02/01/2025 FINDINGS: Airspace consolidation in the right upper lobe again noted presumably atelectasis, underlying infiltr ate not excluded. There is volume loss in the right hemithorax with mild shift of the cardiomediastinal structures towards the right. Left lung is grossly clear. Enteric tube tip is in th e distal stomach. Heart size is upper limit of normal.
[2025-02-01 17:12] LABS: Arterial Blood Carboxyhemoglob 0.8 % (0-1.5); Blood Gas THB 11.5 g/dl (12-18); Blood O2 Saturation 94.6 % (92-98.5)
[2025-02-01] MEDS: Mupirocin NASAL 2 APPL/1 GM TUBE NAS SCH (20:17)
[2025-02-02 06:46] LABS: Albumin/Globulin Ratio 1.1 (1.1-1.8); Anion Gap 13.6 mEq/L (5.0-15.0); Bilirubin Total 1.1 mg/dL (0.2-1.0); Globulin 2.8 g/dL (2.3-3.5); Magnesium 1.5 mg/dL (1.6-2.4); Phosphorus 2.1 mg/dL (2.5-4.9); Potassium 3.6 mEq/L (3.5-5.1); Protein, Total 5.8 g/dL (6.4-8.2)
--- NOTE | 2025-02-02 07:50 | CON ---
Date of Consultation: 02/02/2025 Place Of Service: ICU, bed 7. Reason For Consult: Attempted suicide via overdose. Evaluate and make recommendations. History Of Present Illness: History was presented by the patient's stepdad as she was too lethargic to fully participate in this evaluation. Per shalini, the patient was found unresponsive in her room. He states patient had an altercation with her younger sister and her mother because she informed her younger sister, she would no longer be able to baby sit for her that day because she was not doing well mentally. Hence it degenerated into an argument. He states patient then went into her room. He when he did not hear or saw come out of her as the day goes by he went into her room to check on her and that's when he found her unresponsive. Stated he found empty bottles of psychiatric medications scattered on the floor. He then started CPR and the EMS was called, he states patient was brought to the emergency department. States the patient does have psychiatric history of bipolar disorder, generalized anxiety disorder, and panic disorder and has been seeing a psychiatrist. They brought the patient home and she was stable on medication, and has been going to work and able to perform her daily routine until this episode. MENTAL STATUS EXAMINATION: Patient is unable to participate with this examination. She does respond to person only The patient was found lying in bed, on oxygen via nasal cannula. Pulse rate 79, respiratory rate 25, Blood work done on admission includes potassium of 3.3. Urine toxicology positive for THC and benzodiazepines. white blood cell count of 18.30. Assessment: 1. Bipolar disorder. 2. Generalized anxiety disorder. 3. Panic disorder. 4. Cannabis use disorder. 5. Alcohol abuse 6. Insomnia. Plan And Recommendation: Due to the severity patient's suicide attempt, I am recommending inpatient psychiatric hospitalization when the patient is medically cleared for safety and stabilization of mood symptoms. Recommending withholding all home psychiatric medications. Recommend trazodone 50 mg p.o. at bedtime, Discussed recommendation with treatment team. RANDAL/CONCETTA Voice ID: [id number] Report ID: [id number] MICK
[2025-02-02] MEDS: Magnesium Sulfate 2gm IVPB 2 G/50 ML BAG IV ONE (08:16)
[2025-02-02] MEDS: KCL 20 MEQ/100 mL IVPB 20 MEQ/100 ML BAG IV SCH (08:17)
--- NOTE | 2025-02-02 14:21 | P.PN ---
Subjective Date of Service: 02/02/25 Chief Complaint: Overdose Patient is more awake and interactive. Precedex drip weaned down. No reported agitation No recorded fever. No witnessed seizures. Physical Examination - Vital Signs Temperature: 98.7 F Blood Pressure: 105/74 Pulse: 75 Respirations: 29 Pulse Ox (%): 94 - Studies Microbiology Data (last 24 hrs): 01/30/25 17:42 Catheterized Urine [place] Count - Final No growth. 01/30/25 17:42 Catheterized Urine - Final No growth. Assessment And Plan - Plan Physical Exam: GEN: Awake and interactive. CV: Regular rate and rhythm, no edema Pulm: clear bilaterally, adequate breath sounds bilaterally. ABD: soft, nontender, nondistended Urogenital: Humphrey catheter in place Problem List: Drug overdose Suicide attempt Elevated CPK Manic Bipolar disorder Depression/Anxiety Hyperlipidemia Hx seizure disorder Rhabdomyolysis Reported overdose with Benzos-diazepam and Klonopin, anxiety medication, other medications in reported suicide attempt. Patient found unresponsive on floor by family after unknown amount of time. Poison control contacted in ED. Tox screen positive for Benzos and THC. According to family patient left a note indicating suicidal intent. Second attempt per mother. 01/30 - Minimal-No response to narcan / glucose in ED. Intubated for airway protection in ED and admitted to ICU wean vent as tolerated CPK elevated (1988), +leukocytosis UA questionable, Follow urine cx Pulm consult 01/31 - remains on vent continue vent for now, not following commands; risk to self / harm Continue empiric rocephin low grade temps overnight, leukocytosis improving continue IV Fluids Trend CPK consult psych if available 02/01 Aggressive IV hydration for rhabdomyolysis Start NG tube feeding Monitor CK levels daily Continue to hold home psychotropic medications. Neurochecks Daily sedation vacation. Psychiatry consult. Patient is on suicide watch. 02/02 Patient is awake today CK levels trended down Continue IV fluid Continue to hold psychotropic medications Psychiatry Dr. Queen input appreciated. Inpatient psych recommended once she is clinically stable. Trazodone as needed for sleep. Regular diet as tolerated Discontinue Humphrey catheter. VTE: Lovenox Code: Full Continue ICU level of care
[2025-02-02] MEDS: NICOTINE 21 MG/PAT TD SCH (16:28)
[2025-02-03] MEDS: LORazepam 2 MG/ML VIAL IV PRN (01:00)
[2025-02-03 06:01] LABS: Albumin 3.1 g/dL (3.4-5.0); Anion Gap 12.2 mEq/L (5.0-15.0); Bilirubin Total 0.8 mg/dL (0.2-1.0); Magnesium 1.7 mg/dL (1.6-2.4); Phosphorus 2.6 mg/dL (2.5-4.9); Potassium 3.2 mEq/L (3.5-5.1); Protein, Total 6.1 g/dL (6.4-8.2)
[2025-02-03] MEDS: KCL 20 MEQ/100 mL IVPB 20 MEQ/100 ML BAG IV SCH (08:33)
[2025-02-03] MEDS: MAGNESIUM SULFATE 1 gm IVPB 1 GM/100 ML BAG IV ONE (08:33)
--- NOTE | 2025-02-03 12:57 | P.PN ---
Subjective Date of Service: 02/03/25 Chief Complaint: Overdose Patient is more awake and an ambulatory. Off sedation No reported agitation No recorded fever. Patient reports insomnia. Physical Examination - Vital Signs Temperature: 98.2 F Blood Pressure: 119/80 Pulse: 92 Respirations: 19 Pulse Ox (%): 98 Assessment And Plan - Plan Physical Exam: GEN: Awake and interactive. CV: Regular rate and rhythm, no edema Pulm: clear bilaterally, adequate breath sounds bilaterally. ABD: soft, nontender, nondistended Urogenital: Humphrey catheter in place Problem List: Drug overdose Suicide attempt Elevated CPK Manic Bipolar disorder Depression/Anxiety Hyperlipidemia Hx seizure disorder Rhabdomyolysis Reported overdose with Benzos-diazepam and Klonopin, anxiety medication, other medications in reported suicide attempt. Patient found unresponsive on floor by family after unknown amount of time. Poison control contacted in ED. Tox screen positive for Benzos and THC. According to family patient left a note indicating suicidal intent. Second attempt per mother. 01/30 - Minimal-No response to narcan / glucose in ED. Intubated for airway protection in ED and admitted to ICU wean vent as tolerated CPK elevated (1988), +leukocytosis UA questionable, Follow urine cx Pulm consult 01/31 - remains on vent continue vent for now, not following commands; risk to self / harm Continue empiric rocephin low grade temps overnight, leukocytosis improving continue IV Fluids Trend CPK consult psych if available 02/01 Aggressive IV hydration for rhabdomyolysis Start NG tube feeding Monitor CK levels daily Continue to hold home psychotropic medications. Neurochecks Daily sedation vacation. Psychiatry consult. Patient is on suicide watch. 02/02 Patient is awake today CK levels trended down Continue IV fluid Continue to hold psychotropic medications Psychiatry Dr. Queen input appreciated. Inpatient psych recommended once she is clinically stable. Trazodone as needed for sleep. Regular diet as tolerated Discontinue Humphrey catheter. 02/03 Patient is awake alert and ambulatory. CK level trended down. Vitals are stable Start trazodone as needed for insomnia Initiate arrangement for inpatient psych. Diet as tolerated. VTE: Lovenox Code: Full Continue ICU level of care
[2025-02-03] MEDS ORDERED: NA CHLORIDE 0.9% 50 ML ONE (20:39)
[2025-02-04 01:32] VITALS: O2SAT 100
[2025-02-04 03:39] VITALS: BP 124/87; TEMP 98
--- NOTE | 2025-02-09 13:19 | EKG ---
Test Date: 2025-01-30 Test Time: 22:27:40 [employer] Consultant: BELLO MEASUREMENT RESULTS: Intervals: Rate: 69 RI: 128 QRSD: 102 QT: 432 QTc: 462 [place]: P: 52 RI: 128 QRS: 29 T: 59 INTERPRETIVE STATEMENTS: Normal sinus rhythm Normal ECG Compared to ECG 01/30/2025 17:49:17 Prolonged QT interval no longer present Electronically Signed On 02-09-25 12:53:47 CDT by Deep Bob
== END 2025-02-04 03:00 | DRG 918 ==
LOC: ER 17:19 → ERHOLD 19:18 → 3RD-ICU 01-31 00:48
PROVIDERS: ADMIT Family Medicine; ATTEND Internal Medicine
PROC: 0DH67UZ Insertion of Feeding Device into Stomach, Via Natural or Artificial Opening (ICD-10-PCS; principal; 2025-01-30)
PROC: 4A033R1 Measurement of Arterial Saturation, Peripheral, Percutaneous Approach (ICD-10-PCS; 2025-01-30)
PROC: 5A1935Z Respiratory Ventilation, Less than 24 Consecutive Hours (ICD-10-PCS; 2025-01-30)
PROC: 0BH17EZ Insertion of Endotracheal Airway into Trachea, Via Natural or Artificial Opening (ICD-10-PCS; 2025-01-30)
PROC: 0T9B70Z Drainage of Bladder with Drainage Device, Via Natural or Artificial Opening (ICD-10-PCS; 2025-01-30)
DX: T42.4X2A Poisoning by benzodiazepines, intentional self-harm, initial encounter (principal); M62.82 Rhabdomyolysis; T42.6X2A Poisoning by other antiepileptic and sedative-hypnotic drugs, intentional self-harm, initial encounter; J45.909 Unspecified asthma, uncomplicated; F31.9 Bipolar disorder, unspecified; A63.0 Anogenital (venereal) warts; G47.00 Insomnia, unspecified; F41.1 Generalized anxiety disorder; E78.00 Pure hypercholesterolemia, unspecified; D72.829 Elevated white blood cell count, unspecified; F41.0 Panic disorder [episodic paroxysmal anxiety]; F10.10 Alcohol abuse, uncomplicated; Z78.1 Physical restraint status; Z88.8 Allergy status to other drugs, medicaments and biological substances; Z79.899 Other long term (current) drug therapy
CPT/HCPCS: 31500; 36415; 51702; 71045; 80048; 80053; 80076; 80143; 80156; 80164; 80178; 80179; 80307; 81001; 81025; 82077; 82550; 82805; 82947; 83735; 84100; 84132; 84443; 85025; 85610; 85730; 87086; 87088; 93005; 94002; 94003; 99291; J0696; J1200; J1630; J1650; J2250; J2310; J3010; J3475; J3480; J7030; J7040; J7042